=== PATIENT | female | born 1975 | race Two or more races ===

== ENCOUNTER 2020-09-10 08:47 | Outpatient (REF) | payer OTHER, SELFPAY ==
--- NOTE | 2020-09-10 08:52 | XR_ITS ---
EXAMINATION: XR CHEST CLINICAL INFORMATION: Shortness of breath COMPARISON: None TECHNIQUE: 2 views of the chest were obtained. FINDINGS: There are some regions of patchy density seen within the mid left lung and bilateral lung bases. No pneumothorax or pleural effusion. Heart normal size. No evidence of pulmonary edema. XR/XR chest 2V IMPRESSION: Patchy regions of disease seen bilaterally.
== END 2020-09-10 08:48 | disposition home or self-care (01) ==
LOC: HO.HMGCX 08:47
PROVIDERS: PCP Internal Medicine; Visit Provider Nurse Practitioner Family
DX: Z20.828 Contact with and (suspected) exposure to other viral communicable diseases (principal); R06.02 Shortness of breath
CPT/HCPCS: 71046; U0003

== ENCOUNTER → 2020-11-14 11:27 | Outpatient (BNVA) | payer OTHER, SELFPAY | PROVIDERS: PCP Internal Medicine; Visit Provider Physician Assistant Medical | DX: S29.012A Strain of muscle and tendon of back wall of thorax, initial encounter (principal); S33.9XXA Sprain of unspecified parts of lumbar spine and pelvis, initial encounter; S80.01XA Contusion of right knee, initial encounter; S60.211A Contusion of right wrist, initial encounter; W00.0XXA Fall on same level due to ice and snow, initial encounter | CPT/HCPCS: 73110; 73130; 99203 ==

== ENCOUNTER → 2020-11-18 13:34 | Outpatient (BNVA) | payer OTHER, SELFPAY | PROVIDERS: PCP Internal Medicine; Visit Provider Physician Assistant | DX: S29.012A Strain of muscle and tendon of back wall of thorax, initial encounter (principal); S39.012A Strain of muscle, fascia and tendon of lower back, initial encounter; S80.01XA Contusion of right knee, initial encounter; S60.211A Contusion of right wrist, initial encounter; W18.30XA Fall on same level, unspecified, initial encounter | CPT/HCPCS: 99213 ==

== ENCOUNTER → 2020-11-25 12:47 | Outpatient (BNVA) | payer OTHER, SELFPAY | PROVIDERS: PCP Internal Medicine; Visit Provider Internal Medicine | DX: S29.012A Strain of muscle and tendon of back wall of thorax, initial encounter (principal); S39.012A Strain of muscle, fascia and tendon of lower back, initial encounter; S80.01XA Contusion of right knee, initial encounter; S60.211A Contusion of right wrist, initial encounter; W18.30XA Fall on same level, unspecified, initial encounter | CPT/HCPCS: 99213 ==

== ENCOUNTER → 2020-12-02 13:02 | Outpatient (BNVA) | payer OTHER, SELFPAY | PROVIDERS: PCP Internal Medicine; Visit Provider Internal Medicine | DX: S29.012A Strain of muscle and tendon of back wall of thorax, initial encounter (principal); W18.30XA Fall on same level, unspecified, initial encounter | CPT/HCPCS: 72072; 99214 ==

== ENCOUNTER → 2020-12-15 13:04 | Outpatient (BNVA) | payer OTHER, SELFPAY | PROVIDERS: PCP Internal Medicine; Visit Provider Internal Medicine | DX: S29.012D Strain of muscle and tendon of back wall of thorax, subsequent encounter (principal); W18.30XD Fall on same level, unspecified, subsequent encounter | CPT/HCPCS: 99213 ==

== ENCOUNTER → 2020-12-29 12:53 | Outpatient (BNVA) | payer OTHER, SELFPAY | PROVIDERS: PCP Internal Medicine; Visit Provider Internal Medicine | DX: M54.6 Pain in thoracic spine (principal); Z91.81 History of falling | CPT/HCPCS: 99213 ==

== ENCOUNTER 2021-01-05 17:00 | Outpatient (RCR) | payer OTHER, SELFPAY ==
--- NOTE | 2020-11-26 13:06 | MHC.PT.EP ---
[facility] [place] Office [place] Office [place] Office [address] Bramb[address] [phone] F: [phone] F: [phone] F: [phone] F: [phone] Physical Therapy Plan of Care Date of Evaluation: 11/26/20 Date of Surgery: Diagnosis: fall at work, pain in back, shoulder Assessment: The patient has painful ROM in her midthoracic, cervical spine, and right shoulder region. Her wrist and her knee are back to WNL. She has fairly normal joint motion passively, but she has pain limitation with AROM. All special tests were normal for the shoulder. I did not do a Danielle assessment with her due to pt needing basic foundational posture improvement right now. Frequency and Duration: The patient will be seen 2x/week x 4 weeks Short Term Goals: 1. pt to be able to improve postural muscle endurance to tolerate upright sitting posture Custodial Goals: 1. Pt to be able to return to pain free daily activity. 2. 4 weeks ? The patient to be able to return to all functional reaching, self care ADL's without any limitation from pain or loss of ROM. Treatment Plan: Modalities to reduce pain, spasms and effusion. Manual therapy to restore motion and function. Therapeutic exercise to improve strength and flexibility. Neuromuscular re-education for posture and balance. Therapeutic activities to return to functional activities of daily living. Electronically signed by: Lacey Beckett PT DPT Please sign and return to therapist. Thank you for your referral.
--- NOTE | 2020-12-30 16:56 | MHC.PT.OD ---
[facility] [place] Office [place] Office [place] Office [address] Katlin Brambila [address] [phone] F: [phone] F: [phone] F: [phone] F: [phone] Physical Therapy Daily Note Diagnosis: fall at work, pain in back, shoulder Date of Surgery: Date of Evaluation: 11/26/20 Date of Treatment: 12/23/20 Treatments to Date: 6 Cancellations to Date: No Shows to Date: Authorized Visits: Insurance End Date: Precautions/ Contraindications: Subjective: pt reported she initially was sore after last treatment session but noticed an improvement of pain once the soreness ipmroved. Pain Score and Location: 4-5 UT/MT B Objective Flowsheet: Tests & Measures please see eval Exercises STEPPER X 10 Min Rocking 3 x 30' Open books 1# 3 x 10 B 4 ped shld flex 3 x 10 4 ped fire hydrants 3 x 10 4 ped hip ext 2 x 10 RTB ROW/EXT/Horizontal abd 3 x 10 ea RTB Bicep curl 3 x 10 RTB Tricep ext 3 x 10 Postural education: use of lumbar roll, decreasing forward head, avoidance of agg factors, chair preferences, posture with leisure activities, sleeping posture Modalities MHP to B UT regions seated w/ lumbar roll for spine support x 10 min w/ concomitant stretching Assessment: The patient overall has been reporting pain of lower frequency and intensity. She has met her short term goals at this time and has started tolerating a comprehensive upper body and lower body exercise program. At this time she demonstrates functional AROM but is still limited by pain regarding ADLs. pt would continue to be a good candidate for skilled physical therapy for an additional 2x/wk for 3 wks to continue to work on a comprehensive strengthening and functional training program to promote pain-free return to ADLs. PT Plan: postural education, gentle ROM, gentle stretching Short Term Goals: 1. pt to be able to improve postural muscle endurance to tolerate upright sitting posture - GOAL MET Top Lift Cutter Goals: 1. Pt to be able to return to pain free daily activity. - IN PROGRESS 2. 4 weeks ? The patient to be able to return to all functional reaching, self care ADL's without any limitation from pain or loss of ROM. - IN PROGRESS Electronically signed by: Jayson Jeffries OIL INSPECTOR
--- NOTE | 2021-01-22 14:10 | MHC.PT.DC ---
[facility] [place] Office [place] Office [place] Office [address] 140 [facility] [phone] F: [phone] F: [phone] F: [phone] F: [phone] Physical Therapy Discharge Report Diagnosis: fall at work, pain in back, shoulder Date of Surgery: Date of Evaluation: 11/26/20 Date of Discharge: 01/22/21 Treatments to Date: 8 Cancellations to Date: 2 No Shows to Date: 0 Discharge Status: Improved Function Independent with HEP Discharge Summary: The patient was reporting generalized muscle soreness but significant reduction in pain with physical therapy. She is independent with her home exercise program at this time. She is discharged from this physical therapy plan of care. Electronically signed by: Marlyn Johnson PT, DPT Please sign and return to therapist. Thank you for your referral.
== END 2021-01-22 14:11 | disposition other institution (70) ==
LOC: HO.PT 17:00
PROVIDERS: PCP Internal Medicine; Visit Provider Internal Medicine
DX: S39.012A Strain of muscle, fascia and tendon of lower back, initial encounter (principal)
CPT/HCPCS: 97110; 97112; 97161; 97530

== ENCOUNTER → 2021-01-08 13:00 | Outpatient (BNVA) | payer OTHER, SELFPAY | PROVIDERS: PCP Internal Medicine; Visit Provider Internal Medicine | DX: S29.012D Strain of muscle and tendon of back wall of thorax, subsequent encounter (principal); X58.XXXD Exposure to other specified factors, subsequent encounter | CPT/HCPCS: 99213 ==

== ENCOUNTER 2021-02-13 07:32 | Outpatient (REF) | payer OTHER, SELFPAY ==
[2021-02-13 12:01] LABS: Alanine Aminotransferase 16 U/L (0-31); Albumin Level 4.3 g/dL (3.5-5.0); Alkaline Phosphatase 40 U/L (39-117); Anion Gap 14 (12-20); Aspartate Amino Transferase 15 U/L (5-31); Bilirubin Total 0.5 mg/dL (0.0-1.0); Blood Urea Nitrogen 8 mg/dL (9-16); Calcium 8.7 mg/dL (8.4-10.2); Carbon Dioxide 24 mmol/L (22-29); Chloride 105 mmol/L (96-108); Cholesterol 218 mg/dL; Estimated Glomerular Filt Rate > 60; Glucose Fasting 88 mg/dL (60-99); HDL Cholesterol 63 mg/dL; LDL Cholesterol Calculated 136 mg/dl; Potassium 4.1 mmol/L (3.3-5.1); Sodium 139 mmol/L (135-145); Total Protein 6.7 g/dL (6.5-8.0); Triglycerides 98 mg/dL
[2021-02-13 12:02] LABS: Hematocrit 37.5 % (37-47); Hemoglobin 12.4 g/dl (12.0-16.0); Mean Corpuscular HGB Conc 33.1 g/dl (31.0-35.0); Mean Corpuscular Hemoglobin 32.2 pg (27.0-33.0); Mean Corpuscular Volume 97.4 fL (80-98); Mean Platelet Volume 9.1 fL (9.4-12.3); Platelet Count 300 X10*3/uL (160-400); Red Blood Count 3.85 X10*6/uL (4.20-5.50); Red Cell Distribution Width 14.2 % (11.0-16.0)
[2021-02-13 12:29] LABS: TSH reflex Free T4 0.83 uIU/mL (0.32-4.0)
== END 2021-02-13 07:33 | disposition home or self-care (01) ==
LOC: HO.HMGCLDS 07:32
PROVIDERS: PCP Internal Medicine; Visit Provider Internal Medicine
DX: Z00.00 Encounter for general adult medical examination without abnormal findings (principal); J45.901 Unspecified asthma with (acute) exacerbation
CPT/HCPCS: 36415; 80053; 80061; 84443; 85027

== ENCOUNTER 2023-06-24 10:35 | Outpatient (AMB) | payer OTHER, SELFPAY ==
--- NOTE | 2023-06-24 10:48 | MHC.PC.OV ---
Vital Signs 06/24/23 10:49 Height 5 ft 2 in Weight 193 lb BMI 35.3 BP 128/82 Blood Pressure Location Lt brachial Position Sitting Pulse 65 Pulse Source Pulse Oximeter Pulse Oximetry (%) 98 Oxygen Delivery Method Room Air Intake Visit Reasons: Annual Exam Intake Note: Pt is here today for PE. Allergies metronidazole [Flagyl] Allergy (Unknown, Verified 06/24/23 10:56) Hives carisoprodol [Soma] Adverse Reaction (Severe, Verified 06/24/23 10:56) Swelling of the face SOB Medication List - Last Reconciled 06/24/23 by Mary Ann Vick MD albuterol sulfate 90 mcg/actuation (Ventolin HFA) 2 puffs inhalation Q6H PRN azithromycin take 500 mg today (day 1), then 250 mg for 4 days (days 2-5) PO budesonide-formoterol 80-4.5 mcg/actuation (Symbicort) 2 puffs inhalation BID cyclobenzaprine mg PO flu vacc [id number] 6mos up(PF) mL IM loratadine (Claritin) 10 mg PO DAILY naproxen 500 mg PO BID prednisone 60 mg (3 x 20 mg) PO DAILY trazodone 50 mg PO BEDTIME Tobacco use date assessed: 06/24/23 Dental Screening Dental Screen Date: 06/24/23 Did you have a dental visit in the last 12 months?: Yes Did you have a dental problem in the last 6 months where you did not have access to dental care?: No Was dental information given to patient?: Patient has dentist HPI Annual Exam HPI Details Pt presents for PE. [facility] Medical History (Updated 06/24/23 @ 11:39 by Mary Ann Vick MD) Annual physical exam Back pain Surgical History (Updated 10/07/20 @ 08:26 by DEEPAK Rosario, PSYCHIATRIC AIDES TEACHER) No pertinent past surgical history Family History Father No problems noted. Mother HTN (hypertension) High cholesterol Myocardial infarction Mental health disorder Brother Mental health disorder Social History Housing: House Alcohol intake: current Alcohol intake frequency: a few times a month Patient Tobacco Use Status: Never used Tobacco Current occupational status: employed Cognitive needs: No Hearing needs: No Vision needs: Yes Questionnaire AUDIT C Alcohol Use Questionnaire (AUDIT-C) 1. How often do you have a drink containing alcohol?: 2-4 times a month 2. How many drinks containing alcohol do you have on a typical day when you are drinking?: 1 or 2 3. How often do you have six or more drinks on one occasion?: Never Total Score: 2 Review of Systems Const All systems reviewed & are unremarkable except as noted in HPI and below Reports no additional complaints Eyes Reports no additional complaints ENT Reports no additional complaints Card Reports no additional complaints Resp Reports no additional complaints GI Reports no additional complaints Reports no additional complaints Physical exam (Primary Care) Vital Signs: Last Vital Signs Pulse 65 06/24/23 10:49 BP 128/82 06/24/23 10:49 Pulse Ox 98 06/24/23 10:49 Oxygen Delivery Method Room Air 06/24/23 10:49 BMI result Body Mass Index 35.3 Tobacco/Smoking Status: Tobacco use Status Tobacco use date assessed 06/24/23 06/24/23 10:59 Patient Tobacco Use Status Never used Tobacco 06/24/23 10:59 Const General: no acute distress HENMT Head: Yes normal to inspection Ears: hearing grossly normal bilaterally Face and sinus: Yes normal facial exam Throat: Yes posterior oropharynx normal Eyes General: appearance normal, both eyes and all related structures Neck Neck: Yes no lymphadenopathy and Yes supple Resp Effort & Inspection: normal respiratory effort Auscultation: clear to auscultation bilaterally Cardio Rhythm: regular rhythm Heart sounds: S1 normal heart sound present and S2 normal heart sound present GI Inspection: Yes normal to inspection Palpation (GI): Soft to palpation Percussion: Yes normal to percussion Auscultation: normal bowel sounds Assessment and Plan Assessment & Plan (1) Annual physical exam: Code(s): Z00.00 - Encounter for general adult medical examination without abnormal findings Plan: Well-balanced diet and regular physical activity discussed with the patient. She will return for fasting blood work. Patient will be referred to GI for colonoscopy and mammogram will be scheduled. She follows up with autocad detailer for Pap smear (2) Asthma: Code(s): J45.909 - Unspecified asthma, uncomplicated Qualifiers: Asthma severity: mild Asthma persistence: unspecified Asthma complication type: with acute exacerbation Qualified Code(s): J45.901 - Unspecified asthma with (acute) exacerbation Plan: Patient will restart Symbicort and use albuterol as needed. Z-Myron is prescribed for acute sinusitis (3) Normal pelvic exam: Comment: autocad detailer Code(s): Z01.419 - Encounter for gynecological examination (general) (routine) without abnormal findings Orders: Orders Comprehensive [place]. Panel Fast Today J45.909 - Unspecified asthma, uncomplicated, Z00.00 - Encounter for general adult medical examination without abnormal findings Complete Blood Count Auto Diff Today J45.909 - Unspecified asthma, uncomplicated, Z00.00 - Encounter for general adult medical examination without abnormal findings Lipid Panel Today J45.909 - Unspecified asthma, uncomplicated, Z00.00 - Encounter for general adult medical examination without abnormal findings TSH reflex Free T4 Today J45.909 - Unspecified asthma, uncomplicated, Z00.00 - Encounter for general adult medical examination without abnormal findings Referrals Gastroenterology Referral Z00.00 - Encounter for general adult medical examination without abnormal findings Medications: Refilled budesonide-formoterol 80-4.5 mcg/actuation (Symbicort) 2 puffs inhalation BID 10.2 grams 6RF albuterol sulfate 90 mcg/actuation (Ventolin HFA) Schedule PCP appt for more refills 2 puffs inhalation Q6H PRN 8.5 grams 5RF shortness of breath or wheezing loratadine (Claritin) 10 mg PO DAILY 90 tabs 3RF azithromycin take 500 mg today (day 1), then 250 mg for 4 days (days 2-5) PO 6 tabs 0RF Discontinued trazodone Discontinued Reason: Doctor's Order 50 mg PO BEDTIME 90 tabs 3RF prednisone Discontinued Reason: Doctor's Order 60 mg (3 x 20 mg) PO DAILY 9 tabs 0RF Coding Level of Care Code Est Pt Prev Care 40-64y(29869) Diagnoses Annual physical exam Z00.00 Mild asthma with acute exacerbation, unspecified whether persistent J45.901 Asthma severity: mild Asthma persistence: unspecified Asthma complication type: with acute exacerbation Normal pelvic exam Z01.419
[2023-06-24 10:49] VITALS: BP 128/82; PULSE 65; O2SAT 98; BMI 35.3
== END 2023-06-24 11:43 | disposition home or self-care (01) ==
PROVIDERS: Visit Provider Internal Medicine
DX: Z00.00 Encounter for general adult medical examination without abnormal findings (principal); J45.901 Unspecified asthma with (acute) exacerbation
CPT/HCPCS: 99396

== ENCOUNTER 2023-07-02 08:28 | Outpatient (REF) | payer OTHER, SELFPAY ==
[2023-07-02 11:34] LABS: MANUAL DIFF FLAG NO
[2023-07-02 11:40] LABS: Basophils Percent Auto 0.5 % (0-2); Eosinophils Absolute Auto 0.1 X10*3/uL (0.0-0.4); Eosinophils Percent Auto 1.4 % (0-4); Hematocrit 41.9 % (37.0-47.0); Hemoglobin 13.8 g/dl (12.0-16.0); Imm Gran Abs Auto 0.01 X10*3/uL (0.00-0.03); Imm Gran Pct Auto 0.2 % (0.0-0.4); Lymphocytes Percent Auto 46.9 % (20-40); Mean Corpuscular HGB Conc 32.9 g/dl (31.0-35.0); Mean Corpuscular Hemoglobin 31.5 pg (27.0-33.0); Mean Corpuscular Volume 95.7 fL (80.0-98.0); Mean Platelet Volume 9.5 fL (9.4-12.3); Monocytes Absolute Auto 0.4 X10*3/uL (0.1-1.2); Monocytes Percent Auto 8.2 % (2-11); Neutrophils Absolute Auto 1.8 x10*3/uL (2.0-8.3); Neutrophils Percent Auto 42.8 % (45-73); Platelet Count 319 X10*3/uL (160-400); Red Blood Count 4.38 X10*6/uL (4.20-5.50); Red Cell Distribution Width 13.4 % (11.0-16.0); White Blood Count 4.3 X10*3/uL (4.8-10.8)
[2023-07-02 12:02] LABS: Alanine Aminotransferase 19 U/L (0-31); Albumin Level 4.6 g/dL (3.5-5.0); Alkaline Phosphatase 41 U/L (39-117); Anion Gap 12 (12-20); Aspartate Amino Transferase 23 U/L (5-31); Bilirubin Total 0.5 mg/dL (0.0-1.0); Blood Urea Nitrogen 10 mg/dL (9-16); Calcium 9.5 mg/dL (8.4-10.2); Carbon Dioxide 24 mmol/L (22-29); Chloride 106 mmol/L (96-108); Cholesterol 208 mg/dL (<200); Estimated Glomerular Filt Rate > 60; Glucose Fasting 92 mg/dL (60-99); HDL Cholesterol 52 mg/dL (>40); LDL Cholesterol Calculated 126 mg/dL (<100); Sodium 138 mmol/L (135-145); Total Protein 7.3 g/dL (6.5-8.0); Triglycerides 150 mg/dL (<150)
[2023-07-02 12:16] LABS: TSH reflex Free T4 1.61 uIU/mL (0.32-4.0)
== END 2023-07-02 08:29 | disposition home or self-care (01) ==
LOC: HO.HMGCLDS 08:28
PROVIDERS: PCP Internal Medicine; Visit Provider Internal Medicine
DX: Z00.00 Encounter for general adult medical examination without abnormal findings (principal); J45.909 Unspecified asthma, uncomplicated
CPT/HCPCS: 36415; 80053; 80061; 84443; 85025

== ENCOUNTER 2023-09-28 15:15 | Outpatient (AMB) | payer OTHER, SELFPAY ==
[2023-09-28 15:19] VITALS: BP 143/64; PULSE 60; BMI 35.2
--- NOTE | 2023-09-28 15:19 | MHC.OFFVIS ---
Intake Vital Signs 09/28/23 15:19 09/28/23 15:30 Height 5 ft 2 in Weight 192 lb 10.944 oz BMI 35.2 BP 143/64 H 126/80 Blood Pressure Location Lt brachial Lt brachial Position Sitting Sitting Pulse 60 Comment Manual BP Intake Visit Reasons: Colonoscopy Screening Intake Note: Patient presents to in office visit today as a new patient for colonoscopy screening. CC: Patient reports acid reflux, she use to take medication for it for not any longer. She also reports occasional constipation and hemorrhoids. She states she has an inflamed hemorrhoid right now and is itchy and swollen. She has never had a colonoscopy done. 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 She is referred by Mary Ann Vick of [facility] primary [facility]. PMX Asthma * SURGICAL HISTORY Tonsillectomy C section x 2 Meniscus knee surgery * ALLERGIES Flagyl Soma * [employer] LABS: Laboratory Tests 07/02/23 08:34 WBC 4.3 L Hgb 13.8 Hct 41.9 Plt Count 319 Estimated GFR > 60 Total Bilirubin 0.5 AST 23 ALT 19 Alkaline Phosphata se 41 TSH 1.61 TODAY'S VISIT This is her first colonoscopy. There are no prior problems with anesthesia or sedation. Her asthma is well controlled no cardiac problems. No ID problems. There is no known FHX of CRC or polyps. [facility] Medical History (Updated 09/28/23 @ 15:31 by ADRY Cervantes) Annual physical exam Back pain Surgical History (Updated 09/28/23 @ 15:50 by ADRY Cervantes) H/O knee surgery History of section History of appendectomy No pertinent past surgical history Family History Father No problems noted. Mother HTN (hypertension) High cholesterol Myocardial infarction Mental health disorder Brother Mental health disorder Maternal Grandmother Leukemia Social History Housing: House Alcohol intake: current Alcohol intake frequency: a few times a month Patient Tobacco Use Status: Never used Tobacco Current occupational status: employed Cognitive needs: No Hearing needs: No Vision needs: Yes Review of Systems Const Denies fatigue, Denies fever(s), Denies night sweats, Denies poor appetite and Denies weight loss Eyes Details: glasses Reports requires corrective lenses ENT Reports Normal hearing present, Denies dental pain, Denies dysphagia, Denies hearing loss, Denies mouth pain, Denies odynophagia, Denies throat swelling, Denies tongue swelling and Reports other (Dentition adequate) Card Reports no additional complaints Resp Reports no additional complaints GI Denies abdominal pain, Denies melena, Denies bloating, Denies hematochezia, Denies constipation, Denies GI cramping, Denies dysphagia, Denies excessive flatus, Denies early satiety, Denies heartburn, Denies diarrhea, Denies nausea, Denies odynophagia, Denies vomiting and Denies hematemesis Skin/Breast Denies pruritus, Denies lesions, Denies rash and Denies jaundice Neuro Reports Normal hearing present and Denies Abnormal speech present Endo Denies fatigue Aller/Immun Denies throat swelling and Denies tongue swelling Physical Exam Vital Signs: Last Vital Signs Pulse 60 09/28/23 15:19 BP 126/80 09/28/23 15:30 BMI result Body Mass Index 35.2 Const General: cooperative, no acute distress, well developed and well groomed Nutritional Appearance: well nourished and obese Orientation/consciousness: oriented to person, oriented to place and oriented to time Limitations: No language barrier HEENT Head: Yes normocephalic and Yes atraumatic Eyes General: appearance normal, both eyes and all related structures Pupils: Equal, round and reactive pupils present Neck Neck: Yes normal visual inspection and Yes no lymphadenopathy Thyroid: Thyroid normal Resp Effort & Inspection: normal respiratory effort and able to speak in complete sentences Auscultation: clear to auscultation bilaterally Cardio Rate: regular rate Rhythm: regular rhythm Heart sounds: Normal, physiologic split S2 sound present Peripheral pulses: radial pulses present and posterior tibial pulses present GI Inspection: No distended, Yes Abdominal panniculus present and Yes obesity Palpation (GI): Soft to palpation, nontender, no guarding, not rigid and No hepatosplenomegaly present Percussion: Yes normal to percussion Auscultation: normal bowel sounds Rectal Exam - Female: deferred Abdomen image: 1. surgical scars Skin General skin exam: no rashes or lesions noted, turgor normal, skin not dry, no jaundice, No spider nevi and no striae Rashes: no rashes Nails: normal Neuro General: oriented to person, oriented to place and oriented to time Cranial nerves: Yes Equal, round and reactive pupils present and Yes Normal hearing present Speech: No Abnormal speech present Extrem General: Yes normal to inspection, No clubbing, No cyanosis and No edema Psych Appearance: grossly normal and well kempt Mental Status: mental status grossly normal Speech and movement: Normal speech and movement present Affect: normal affect Attitude: cooperative Thought process: Normal thought process present and not confabulating Thought content: Normal thought content present Insight: Good insight present (Psych) Judgement: Good judgement present (Psych) Assessment & Plan Assessment & Plan (1) Pre-op examination: Code(s): Z01.818 - Encounter for other preprocedural examination Plan This is her first colonoscopy. There are no prior problems with anesthesia or sedation. Her asthma is well controlled no cardiac problems. No ID problems. There is no known FHX of CRC or polyps. Orders: Orders Colonoscopy - GI Use Only Today Z01.818 - Encounter for other preprocedural examination Medications: New sod picosulf-mag ox-citric ac 10 mg-3.5 gram- 12 gram/160 mL (Clenpiq) take first dose at 5-9PM evening before colonoscopy; 2nd dose the next day approximately 5 hrs before colonoscopy 160 mL PO DAILY 320 mL 0RF Z01.818 - Encounter for other preprocedural examination Coding Level of Care Code New Pt Level 3 (56727) Diagnoses Pre-op examination Z01.818
[2023-09-28 15:30] VITALS: BP 126/80
== END 2023-09-28 16:06 | disposition home or self-care (01) ==
PROVIDERS: PCP Internal Medicine; Visit Provider Nurse Practitioner
DX: Z01.818 Encounter for other preprocedural examination (principal)
CPT/HCPCS: 99203

== ENCOUNTER → 2023-09-28 15:15 | Outpatient (BNVA) | payer OTHER, SELFPAY | PROVIDERS: PCP Internal Medicine; Visit Provider Nurse Practitioner ==

== ENCOUNTER 2024-01-31 08:55 | Day surgery (SDC) | payer OTHER, SELFPAY ==
--- NOTE | 2024-01-30 13:59 | HO.ANESPROP2 ---
Documented by User: Carole Uribe NP 01/30/24 13:59 HPI - Anesthesia Eval Consult details Narrative: 48yo F for Colonoscopy PMFSH Active Problems Active Problems: All Active Problems Pre-op examination (Acute) Normal pelvic exam (Acute) Annual physical exam (Acute) Back pain (Acute) Fall (Acute) Cough (Acute) Otitis media (Acute) Sinusitis (Acute) Shortness of breath (Acute) Asthma (Acute) Past Medical History Medical History Annual physical exam Back pain Family History Family History Father No problems noted. Mother HTN (hypertension) High cholesterol Myocardial infarction Mental health disorder Brother Mental health disorder Maternal Grandmother Leukemia Surgical History Surgical History H/O knee surgery History of section History of appendectomy No pertinent past surgical history Social History Social History Housing: House Alcohol intake: current Alcohol intake frequency: holidays/special occasions only Patient Tobacco Use Status: Never used Tobacco Substance Use Type Other:: smoked at night for sleep Are you DNR?: No Advance Directives: No Advance Directives Information Provided: Yes Recently lost weight without trying: No Nutrition Risks: No Nutritional Risk Patient : No Current occupational status: employed Cognitive needs: No Hearing needs: No Vision needs: Yes Meds Allergies Allergy/AdvReac Type Severity Reaction Status Date / Time metronidazole [Flagyl] Allergy Unknown Hives Verified 09/28/23 15:22 carisoprodol [Soma] AdvReac Severe Swelling Verified 09/28/23 15:22 of the face SOB Assessment and Plan Assessment Anesthesia Assessment: Chart Reviewed Documented by User: Cristel Cervantes MD 01/31/24 09:28 PMFSH Past Medical History Medical History Annual physical exam Back pain Family History Family History Father No problems noted. Mother HTN (hypertension) High cholesterol Myocardial infarction Mental health disorder Brother Mental health disorder Maternal Grandmother Leukemia Surgical History Surgical History H/O knee surgery History of section History of appendectomy No pertinent past surgical history History of Problems with Anesthesia: No Social History Social History Housing: House Alcohol intake: current Alcohol intake frequency: holidays/special occasions only Patient Tobacco Use Status: Never used Tobacco Substance Use Type Other:: smoked at night for sleep Are you DNR?: No Advance Directives: No Advance Directives Information Provided: Yes Recently lost weight without trying: No Nutrition Risks: No Nutritional Risk Patient : No Current occupational status: employed Cognitive needs: No Hearing needs: No Vision needs: Yes Meds Allergies Allergy/AdvReac Type Severity Reaction Status Date / Time metronidazole [Flagyl] Allergy Unknown Hives Verified 09/28/23 15:22 carisoprodol [Soma] AdvReac Severe Swelling Verified 09/28/23 15:22 of the face SOB Exam Airway Mallampati Class: II TM Dist: >3cm Neck ROM: Full Loose/Missing/Broken Teeth: No Heart: RRR Lungs: CTA Assessment and Plan Assessment Anesthesia Assessment: Anesthesia Plan Discussed Final Anesthetic Review History of Problems with Anesthesia: No NPO: Yes ASA Class: II Final Preanesthetic Review: Meds/Allgs Chart Reviewed, Consent Obtained/Reviewed and Anes Risks/Benef Reviewed Patient Risk: Low Procedure Risk: Low Anesthetic Plan Anesthetic Plan: MAC: Disposition: Standard PACU
[2024-01-31 09:08] VITALS: BP 163/94; PULSE 65; RESP 20; TEMP 36.8; O2SAT 99; BMI 33.0
--- NOTE | 2024-01-31 09:24 | MHC.SHP ---
Pre-Procedural Eval Section A - 24 Hr Update-Section A only Date of Service: 01/31/24 Section B - Complete if H&P > 30 days Chief Complaint: screening Relevant Family History (Specify if Yes): No Relevant Social History: None Present Medications: see Short Stay Collaborative assessment Medical History: Significant History (back pain) History of Previous Operations: Relevant previous surgery/procedure and date(s) (H/O knee surgery History of section History of appendectomy) Allergies: Allergies Allergy/AdvReac Type Severity Reaction Status Date / Time metronidazole [Flagyl] Allergy Unknown Hives Verified 09/28/23 15:22 carisoprodol [Soma] AdvReac Severe Swelling Verified 09/28/23 15:22 of the face SOB Review of Systems Sugical H&P ROS: Negative: Constitution, Cardiovascular, Respiratory, Neurological, Psychiatric, Hem-Onc, Allergic/Immunologic, Gastrointestinal, Genitourinary, Musculoskeletal, Integumentary, Endocrine and Eyes/Ears/Nose/Throat Exam Surgical H&P Exam: Normal: HEENT, Normal: Heart, Normal: Lungs, Normal: Extremities, Normal: Abdomen, Normal: Skin and Normal: Neurological Plan Diagnosis/Plan: Unchanged I have reviewed the history and physical and performed a pertinent physical examination on my patient. No changes have occurred unless specified. Time Spent With Patient Time: Total time managing care of this patient today ____ minutes.
[2024-01-31 09:32] LABS: UPreg QC Valid YES; Urine Pregnancy NEGATIVE (NEGATIVE)
[2024-01-31] MEDS: Lactated Ringers 1,000 ML 100 ML IVCONT (09:33)
--- NOTE | 2024-01-31 11:03 | P.OP_ITS ---
Operative Note Operative Note Date of Service: 01/31/24 Narrative: Operative Information Procedure Description: Colonoscopy Indication: screening Anesthesia: MAC COLONOSCOPY Instrument: Olympus variable stiffness pediatric scope 190L Colonoscopy Monitoring: Vital signs and clinical assessment, continuous EKG monitoring, Pulse oximetry, Carbon Dioxide monitoring and blood pressure monitoring were done throughout the procedure. Colon withdrawal time was 10 minutes. Procedure: The patient was placed in the left lateral decubitis position and pre-procedure medications were administered. After a digital rectal examination of the ano-rectum, the video colonoscope was inserted into the rectum and advanced through the colon to the cecum/TI. The colonoscope was slowly withdrawn in a retrograde panoramic fashion and the colon mucosa was carefully examined including a retroflexed view of the rectum. Findings and interventions are described below. Procedure Difficulty: moderate Findings: Terminal Ileum-normal Cecum:normal Ascending Colon: normal Transverse Colon -normal Descending Colon:normal Sigmoid Colon: normal Rectum: Retroflexion with small internal hemorrhoids seen, grade I, x 2 sessile polyps 8-9 mm removed with cold snare and x 1 sessile polyp 4-5 mm removed with cold forceps Anorectum - normal Intervention: cold snare and biopsy forceps Colon preparation: [place] Bowel Preparation Scale Right colon; 2 Transverse colon: 2 Left colon; 2 (0 = Unprepared colon segment with mucosa not seen due to solid stool that cannot be cleared. 1 = Portion of mucosa of the colon segment seen, but other areas of the colon segment not well seen due to staining, residual stool and/or opaque liquid. 2 = Minor amount of residual staining, small fragments of stool and/or opaque liquid, but mucosa of colon segment seen well. 3 = Entire mucosa of colon segment seen well with no residual staining, small fragments of stool or opaque liquid) Impression and Post Procedure Diagnosis: colon polyps internal hemorrhoids Plan: High fiber diet leaflet Avoid straining at stool, epsom salts and sitz bath, anusol supps or cream Repeat Colonoscopy in 5 years if adenomatous polyps, 10 yrs if non adenomatous or earlier if clinically indicated Above findings were reviewed with the patient and relevant handouts were provided if indicated.
[2024-01-31 11:09] VITALS: BP 124/60; PULSE 57; RESP 18; TEMP 37.1; O2SAT 100
[2024-01-31 11:24] VITALS: BP 140/70; PULSE 45; RESP 18; O2SAT 98
[2024-01-31 11:39] VITALS: BP 136/60; PULSE 52; RESP 18; TEMP 36.6; O2SAT 98
== END 2024-01-31 12:27 | disposition home or self-care (01) ==
PROVIDERS: Nurse Practitioner; PCP Internal Medicine; Visit Provider Internal Medicine Gastroenterology
PROC: 0DJD8ZZ Inspection of Lower Intestinal Tract, Via Natural or Artificial Opening Endoscopic (ICD-10-PCS; CPT 45378; principal; 2024-01-31 12:00)
DX: Z12.11 Encounter for screening for malignant neoplasm of colon (principal); K62.1 Rectal polyp; K64.0 First degree hemorrhoids; J45.909 Unspecified asthma, uncomplicated; Z79.899 Other long term (current) drug therapy; Z88.8 Allergy status to other drugs, medicaments and biological substances
CPT/HCPCS: 45385; 45380; 81025; 88305; J2704

== ENCOUNTER → 2024-01-31 08:55 | Outpatient (BNV) | payer OTHER, SELFPAY | PROVIDERS: PCP Internal Medicine; Visit Provider Internal Medicine Gastroenterology | DX: Z12.11 Encounter for screening for malignant neoplasm of colon (principal); K63.5 Polyp of colon; K64.0 First degree hemorrhoids | CPT/HCPCS: 45380; 45385 ==

== ENCOUNTER 2024-06-27 10:31 | Outpatient (AMB) | payer OTHER, SELFPAY ==
[2024-06-27 10:34] VITALS: BP 122/76; PULSE 56; O2SAT 98; BMI 35.0
--- NOTE | 2024-06-27 10:34 | A.OFFPC_ITS ---
Vital Signs 06/27/24 10:34 Height 5 ft 4 in Weight 204 lb BMI 35.0 BP 122/76 Blood Pressure Location Lt brachial Position Sitting Pulse 56 Pulse Source Pulse Oximeter Pulse Oximetry (%) 98 Oxygen Delivery Method Room Air Intake Visit Reasons: PE Intake Note: Pt is here today for PE. Pt had pap in January of this year. Pt had mammo done at [place] last month. Allergies metronidazole [Flagyl] Allergy (Unknown, Verified 06/27/24 10:49) Hives carisoprodol [Soma] Adverse Reaction (Severe, Verified 06/27/24 10:49) Swelling of the face SOB Medication List - Last Reconciled 06/27/24 by Mary Ann Vick MD albuterol sulfate 90 mcg/actuation (Ventolin HFA) 2 puffs inhalation Q6H PRN Tobacco use date assessed: 06/27/24 Dental Screening Dental Screen Date: 06/27/24 Did you have a dental visit in the last 12 months?: Yes Did you have a dental problem in the last 6 months where you did not have access to dental care?: No Was dental information given to patient?: Patient has dentist HPI PE HPI Details Patient presents for a physical. Chronic asthma is controlled on Symbicort use only in the fall and winter. Patient reports chronic intermittent epigastric and right upper quadrant abdominal discomfort after eating fried foods. She reports intermittent heartburn but no odynophagia dysphagia nausea vomiting fever chills change in bowel habits. COUNT INCLUDES THE [facility] Medical History (Updated 06/27/24 @ 11:18 by Mary Ann Vick MD) Annual physical exam Back pain Surgical History (Updated 06/27/24 @ 13:12 by Mary Ann Vick MD) H/O knee surgery History of section History of appendectomy No pertinent past surgical history Family History Father No problems noted. Mother HTN (hypertension) High cholesterol Myocardial infarction Mental health disorder Brother Mental health disorder Maternal Grandmother Leukemia Social History Housing: House Alcohol intake: current Alcohol intake frequency: holidays/special occasions only Patient Tobacco Use Status: Never used Tobacco e-Cigarette/Vaping Use: Never Used service: No Current occupational status: employed Cognitive needs: No Hearing needs: No Vision needs: Yes Questionnaire PHQ-9 Over the last 2 weeks, how often have you been bothered by any of the following problems? 1. Little interest or pleasure in doing things: not at all 2. Feeling down, depressed, or hopeless: not at all 3. Trouble falling or staying asleep, or sleeping too much: not at all 4. Feeling tired or having little energy: several days 5. Poor appetite or overeating: not at all 6. Feeling bad about yourself - or that you are a failure or have let yourself or your family down: not at all 7. Trouble concentrating on things, such as reading the newspaper or watching television: not at all 8. Moving or speaking so slowly that other people could have noticed. Or the opposite - being so fidgety or restless that you have been moving around a lot more than usual: not at all 9. Thoughts that you would be better off or of hurting yourself in some way: not at all Total score: 1 Depression Screening Interpretation: Negative Depression Screening Done: Yes 20599 - PHQ-9 Billing: Yes Source: Developed by Drs. Kelby Cervantes, Saritha Crawford, Royal Barahona and colleagues, with an educational usman from [employer]. Thrive Questionnaire Date Thrive assessed: 06/27/24 I am a: Patient What is your living situation today?: I have a steady place to live Within the past 12 months, did the food you bought not last and you didn't have the money to get more?: Never true Within the past 12 months, did you worry whether your food would run out before you got money to buy more?: Never true Do you have trouble paying for medicines?: No Do you have trouble getting transportation to medical appointments?: No Do you have trouble paying your heating and electricity bill?: No Do you have trouble taking care of your child, family member or friend?: No Do you have trouble with day-to-day activities such as bathing, preparing meals, shopping, managing finances, etc.?: No Are you interested in more education?: No Please select the resources that you would like help with: None Currently or been in a relationship where the following occur: No concerns reported THRIVE Score: 0 AUDIT C Alcohol Use Questionnaire (AUDIT-C) 1. How often do you have a drink containing alcohol?: 2-4 times a month 2. How many drinks containing alcohol do you have on a typical day when you are drinking?: 3 or 4 3. How often do you have six or more drinks on one occasion?: Never Total Score: 3 SATNAM-7 AMB Questionnaire SATNAM-7 Date SATNAM - 7 assessed: 06/27/24 Feeling nervous, anxious, or on edge: 1 = Several days Not being able to stop or control worryin = Not at all Worrying too much about different things: 0 = Not at all Trouble relaxin = Not at all Being so restless that it is hard to sit still: 0 = Not at all Becoming easily annoyed or irritable: 1 = Several days Feeling afraid as if something awful might happen: 0 = Not at all Total SATNAM-7 score (0-4 normal; 5-9 mild; 10-14 moderate; 15-21 severe): 2 Source: Developed by Drs. Kelby Cervantes, Saritha Crawford, Royal Barahona and colleagues, with an educational usman from [employer]. SATNAM-7 Assessment Billing SATNAM-7 Assessment Tool: SATNAM-7 Assessment 52845 Review of Systems Const All systems reviewed & are unremarkable except as noted in HPI and below Eyes Reports no additional complaints ENT Reports no additional complaints Card Reports no additional complaints Resp Reports no additional complaints GI Reports no additional complaints Reports no additional complaints Physical exam (Primary Care) Vital Signs: Last Vital Signs Pulse 56 06/27/24 10:34 BP 122/76 06/27/24 10:34 Pulse Ox 98 06/27/24 10:34 Oxygen Delivery Method Room Air 06/27/24 10:34 BMI result Body Mass Index 35.0 Tobacco/Smoking Status: Tobacco use Status Tobacco use date assessed 06/27/24 06/27/24 10:50 Patient Tobacco Use Status Never used Tobacco 06/27/24 10:50 e-Cigarette/Vaping Use Never Used 06/27/24 10:50 PHQ-9: PHQ-9 Score PHQ-9: Total score 1 06/27/24 10:55 Depression Screening Interpretation: Negative Thrive Assessment: Date of Thrive Assessment Date Thrive assessed 06/27/24 06/27/24 10:55 Currently or been in a relationship where the following occur: No concerns reported Const General: no acute distress HENMT Head: Yes normal to inspection Ears: hearing grossly normal bilaterally Face and sinus: Yes normal facial exam Mouth: Normal oral and palatal mucosa present Eyes General: appearance normal, both eyes and all related structures Neck Neck: Yes no lymphadenopathy and Yes supple Resp Effort & Inspection: normal respiratory effort Auscultation: clear to auscultation bilaterally Cardio Rhythm: regular rhythm Heart sounds: S1 normal heart sound present and S2 normal heart sound present GI Inspection: Yes normal to inspection Palpation (GI): Soft to palpation Percussion: Yes normal to percussion Auscultation: normal bowel sounds Assessment and Plan Assessment & Plan (1) Annual physical exam: Code(s): Z00.00 - Encounter for general adult medical examination without abnormal findings Plan: Well-balanced diet regular physical activity weight loss discussed with the patient. She is up-to-date with the mammogram Pap smear and colonoscopy (2) Asthma: Code(s): J45.909 - Unspecified asthma, uncomplicated Qualifiers: Asthma complication type: with acute exacerbation Asthma persistence: unspecified Asthma severity: mild Qualified Code(s): J45.901 - Unspecified asthma with (acute) exacerbation Plan: Continue Symbicort and albuterol as needed (3) RUQ abdominal pain: Code(s): R10.11 - Right upper quadrant pain Plan: For chronic intermittent right upper quadrant epigastric discomfort after eating abdominal ultrasound will be obtained to rule out gallstones and patient will try omeprazole 40 mg for 1 month if the symptoms persist she will be referred to GI (4) Hx of colonoscopy: Comment: 01/2024 2 hyperplastic polyp recheck in [address] Hernandez Code(s): Z98.890 - Other specified postprocedural states Orders: Orders Comprehensive Dendron. Panel Fast 1 Year Z00.00 - Encounter for general adult medical examination without abnormal findings Complete Blood Count Auto Diff 1 Year Z00.00 - Encounter for general adult medical examination without abnormal findings Lipid Panel 1 Year Z00.00 - Encounter for general adult medical examination without abnormal findings US abdomen complete Today R10.11 - Right upper quadrant pain Comprehensive Dendron. Panel Fast Today J45.901 - Unspecified asthma with (acute) exacerbation, Z00.00 - Encounter for general adult medical examination without abnormal findings Complete Blood Count Auto Diff Today J45.901 - Unspecified asthma with (acute) exacerbation, Z00.00 - Encounter for general adult medical examination without abnormal findings Lipid Panel Today J45.901 - Unspecified asthma with (acute) exacerbation, Z00.00 - Encounter for general adult medical examination without abnormal findings TSH reflex Free T4 Today J45.901 - Unspecified asthma with (acute) exacerbation, Z00.00 - Encounter for general adult medical examination without abnormal findings UA w Microscopic Today J45.901 - Unspecified asthma with (acute) exacerbation, Z00.00 - Encounter for general adult medical examination without abnormal findings Vitamin D 25-OH Total 1 Year Z00.00 - Encounter for general adult medical examination without abnormal findings Medications: New budesonide-formoterol 80-4.5 mcg/actuation (Symbicort) 2 puffs inhalation BID 10.2 grams 4RF omeprazole 40 mg PO DAILY 30 caps 1RF Changed From albuterol sulfate 90 mcg/actuation (Ventolin HFA) Schedule PCP appt for more refills 2 puffs inhalation Q6H PRN 8.5 grams 5RF shortness of breath or wheezing To albuterol sulfate 90 mcg/actuation (Ventolin HFA) 2 puffs inhalation Q6H PRN 8.5 grams 5RF shortness of breath or wheezing Coding Level of Care Code Est Pt Prev Care 40-64y(32388) Diagnoses Annual physical exam Z00.00 Mild asthma with acute exacerbation, unspecified whether persistent J45.901 Asthma complication type: with acute exacerbation Asthma persistence: unspecified Asthma severity: mild RUQ abdominal pain R10.11 Hx of colonoscopy Z98.890 Additional Codes SATNAM-7 Assessment Billing - SATNAM-7 Assessment Tool: SATNAM-7 Assessment 43969 ([id number])
== END 2024-06-27 11:25 | disposition home or self-care (01) ==
PROVIDERS: PCP Internal Medicine; Visit Provider Internal Medicine
DX: Z00.00 Encounter for general adult medical examination without abnormal findings (principal); J45.901 Unspecified asthma with (acute) exacerbation; R10.11 Right upper quadrant pain; Z98.890 Other specified postprocedural states

== ENCOUNTER → 2024-06-27 10:31 | Outpatient (BNVA) | payer OTHER, SELFPAY | PROVIDERS: PCP Internal Medicine; Visit Provider Internal Medicine | DX: Z00.01 Encounter for general adult medical examination with abnormal findings (principal); J45.901 Unspecified asthma with (acute) exacerbation; R10.11 Right upper quadrant pain; Z87.19 Personal history of other diseases of the digestive system | CPT/HCPCS: 96127 ==

== ENCOUNTER 2024-07-25 07:51 | Outpatient (REF) | payer OTHER, SELFPAY ==
--- NOTE | ~2024-07-25 | US_ITS ---
EXAMINATION: US ABDOMEN COMPLETE CLINICAL INFORMATION: Right upper quadrant pain. Rule out gallstones. COMPARISON: None available. TECHNIQUE: Real-time imaging of the abdominal viscera. Technically limited study secondary to bowel gas. FINDINGS: PANCREAS: The visualized portions of the pancreas are unremarkable but a large portion of the gland is obscured by bowel gas. To ABDOMINAL AORTA: The proximal, mid, and distal segments are normal in caliber. INFERIOR VENA CAVA: Visualized portions are normal. LIVER: The liver is normal in size. The liver contour is normal. Parenchymal echogenicity is normal. 2 benign hepatic cysts are present. There is no intrahepatic biliary duct dilatation seen. GALLBLADDER: The gallbladder wall is mildly thickened at 4 mm. The gallbladder is physiologically distended without evidence of stones, sludge, polyps, or pericholecystic fluid. Robison's sign is reportedly positive. COMMON BILE DUCT: Normal in caliber measuring 0.2 cm in diameter. RIGHT KIDNEY: Normal. No hydronephrosis. No renal calculi or focal parenchymal lesions. The kidney measures 10.4 cm in maximum dimension. LEFT KIDNEY: Normal. No hydronephrosis. No renal calculi or focal parenchymal lesions. The kidney measures 10.8 cm in maximum dimension. SPLEEN: Normal. The spleen measures 8.4 cm in maximum dimension. FREE FLUID: None. US/US abdomen complete IMPRESSION: Mildly thickened gallbladder wall with positive Robison's sign. No gallstones are seen. If acalculous cholecystitis is a concern, a HIDA scan may be useful for further evaluation. Electronically signed by: Cristo Thompson MD 09/22/2024 12:16 PM [facility]
== END 2024-07-25 07:52 | disposition home or self-care (01) ==
LOC: HO.US 07:51
PROVIDERS: PCP Internal Medicine; Visit Provider Internal Medicine
DX: R10.11 Right upper quadrant pain (principal)
CPT/HCPCS: 76700

== ENCOUNTER 2024-08-11 10:57 | Outpatient (REF) | payer OTHER, SELFPAY ==
[2024-08-11 13:49] LABS: MANUAL DIFF FLAG NO
[2024-08-11 13:51] LABS: Basophils Percent Auto 0.4 % (0-2); Eosinophils Absolute Auto 0.1 X10*3/uL (0.0-0.4); Eosinophils Percent Auto 1.5 % (0-4); Hematocrit 39.2 % (37.0-47.0); Hemoglobin 13.2 g/dl (12.0-16.0); Imm Gran Abs Auto 0.02 X10*3/uL (0.00-0.03); Imm Gran Pct Auto 0.4 % (0.0-0.4); Lymphocytes Absolute Auto 1.9 X10*3/uL (1.2-4.9); Mean Corpuscular HGB Conc 33.7 g/dl (31.0-35.0); Mean Corpuscular Hemoglobin 32.4 pg (27.0-33.0); Mean Corpuscular Volume 96.1 fL (80.0-98.0); Mean Platelet Volume 9.3 fL (9.4-12.3); Monocytes Absolute Auto 0.4 X10*3/uL (0.1-1.2); Monocytes Percent Auto 8.2 % (2-11); Neutrophils Absolute Auto 2.7 x10*3/uL (2.0-8.3); Neutrophils Percent Auto 52.5 % (45-73); Platelet Count 326 X10*3/uL (160-400); Red Blood Count 4.08 X10*6/uL (4.20-5.50); Red Cell Distribution Width 13.1 % (11.0-16.0); White Blood Count 5.2 X10*3/uL (4.8-10.8)
[2024-08-11 14:22] LABS: Alanine Aminotransferase 15 U/L (0-31); Albumin Level 4.4 g/dL (3.5-5.0); Alkaline Phosphatase 39 U/L (39-117); Anion Gap 14 (12-20); Aspartate Amino Transferase 22 U/L (5-31); Bilirubin Total 0.6 mg/dL (0.0-1.0); Blood Urea Nitrogen 10 mg/dL (9-16); Calcium 9.1 mg/dL (8.4-10.2); Carbon Dioxide 23 mmol/L (22-29); Chloride 107 mmol/L (96-108); Cholesterol 212 mg/dL (<200); Estimated Glomerular Filt Rate > 60; Glucose Fasting 85 mg/dL (60-99); HDL Cholesterol 54 mg/dL (>40); LDL Cholesterol Calculated 124 mg/dL (<100); Potassium 4.3 mmol/L (3.3-5.1); Sodium 140 mmol/L (135-145); Total Protein 6.9 g/dL (6.5-8.0); Triglycerides 170 mg/dL (<150)
[2024-08-11 14:37] LABS: TSH reflex Free T4 1.14 uIU/mL (0.32-4.0)
== END 2024-08-11 10:58 | disposition home or self-care (01) ==
LOC: HO.HMGCLDS 10:57
PROVIDERS: PCP Internal Medicine; Visit Provider Internal Medicine
DX: Z00.00 Encounter for general adult medical examination without abnormal findings (principal); J45.901 Unspecified asthma with (acute) exacerbation
CPT/HCPCS: 36415; 80053; 80061; 84443; 85025

== ENCOUNTER 2024-11-12 12:38 | Outpatient (AMB) | payer OTHER, SELFPAY ==
--- NOTE | 2024-11-12 13:02 | MHC.PC.OV ---
Vital Signs 11/12/24 13:03 Height 5 ft 4 in Weight 202 lb BMI 34.7 BP 128/76 Blood Pressure Location Lt brachial Position Sitting Respiration 18 Pulse 76 Pulse Source Pulse Oximeter Temp 97.9 F Temp Source Oral Pulse Oximetry (%) 98 Intake Visit Reasons: Follow up after u/s Allergies metronidazole [Flagyl] Allergy (Unknown, Verified 06/27/24 10:49) Hives carisoprodol [Soma] Adverse Reaction (Severe, Verified 06/27/24 10:49) Swelling of the face SOB Medication List - Last Reconciled 11/12/24 by Mary Ann Vick MD albuterol sulfate 90 mcg/actuation (Ventolin HFA) 2 puffs inhalation Q6H PRN fluticasone propion-salmeterol 250-50 mcg/dose (Advair Diskus) 1 inh inhalation BID omeprazole 40 mg PO DAILY Tobacco use date assessed: 06/27/24 Dental Screening Dental Screen Date: 06/27/24 HPI Follow up after u/s HPI Details Pt presents for f/u R upper abd pain resolved after patient modify her diet avoiding fatty fried foods and sodas. She has been taking omeprazole regularly and denies GERD symptoms. patient denies constipation or diarrhea, hematochezia melena. Chronic asthma is stable on albuterol and Advair only seasonally. [facility] Medical History Annual physical exam Back pain Surgical History H/O knee surgery History of section History of appendectomy No pertinent past surgical history Family History Father No problems noted. Mother HTN (hypertension) High cholesterol Myocardial infarction Mental health disorder Brother Mental health disorder Maternal Grandmother Leukemia Social History Housing: House Alcohol intake: current Alcohol intake frequency: holidays/special occasions only Patient Tobacco Use Status: Never used Tobacco e-Cigarette/Vaping Use: Never Used service: No Current occupational status: employed Cognitive needs: No Hearing needs: No Vision needs: Yes Questionnaire PHQ-9 Over the last 2 weeks, how often have you been bothered by any of the following problems? 1. Little interest or pleasure in doing things: not at all 2. Feeling down, depressed, or hopeless: not at all 3. Trouble falling or staying asleep, or sleeping too much: not at all 4. Feeling tired or having little energy: not at all 5. Poor appetite or overeating: not at all 6. Feeling bad about yourself - or that you are a failure or have let yourself or your family down: not at all 7. Trouble concentrating on things, such as reading the newspaper or watching television: not at all 8. Moving or speaking so slowly that other people could have noticed. Or the opposite - being so fidgety or restless that you have been moving around a lot more than usual: not at all 9. Thoughts that you would be better off or of hurting yourself in some way: not at all Total score: 0 Depression Screening Interpretation: Negative Depression Screening Done: Yes 58119 - PHQ-9 Billing: Yes Source: Developed by Drs. Kelby Cervantes, Saritha Crawford, Royal Barahona and colleagues, with an educational usman from [employer]. Thrive Questionnaire Date Thrive assessed: 06/27/24 I am a: Patient What is your living situation today?: I have a steady place to live Within the past 12 months, did the food you bought not last and you didn't have the money to get more?: Never true Within the past 12 months, did you worry whether your food would run out before you got money to buy more?: Never true Do you have trouble paying for medicines?: No Do you have trouble getting transportation to medical appointments?: No Do you have trouble paying your heating and electricity bill?: No Do you have trouble taking care of your child, family member or friend?: No Do you have trouble with day-to-day activities such as bathing, preparing meals, shopping, managing finances, etc.?: No Are you currently unemployed and looking for a job?: No Are you interested in more education?: No Please select the resources that you would like help with: None Currently or been in a relationship where the following occur: No concerns reported THRIVE Score: 0 AUDIT C Alcohol Use Questionnaire (AUDIT-C) 1. How often do you have a drink containing alcohol?: 2-4 times a month 2. How many drinks containing alcohol do you have on a typical day when you are drinking?: 1 or 2 3. How often do you have six or more drinks on one occasion?: Never Total Score: 2 SATNAM-7 AMB Questionnaire SATNAM-7 Date SATNAM - 7 assessed: 06/27/24 Feeling nervous, anxious, or on edge: 0 = Not at all Not being able to stop or control worryin = Not at all Worrying too much about different things: 0 = Not at all Trouble relaxin = Not at all Being so restless that it is hard to sit still: 0 = Not at all Becoming easily annoyed or irritable: 0 = Not at all Feeling afraid as if something awful might happen: 0 = Not at all Total SATNAM-7 score (0-4 normal; 5-9 mild; 10-14 moderate; 15-21 severe): 0 Source: Developed by Drs. Kelby Cervantes, Saritha Crawford, Royal Barahona and colleagues, with an educational usman from [employer]. Review of Systems Const All systems reviewed & are unremarkable except as noted in HPI and below Eyes Reports no additional complaints ENT Reports no additional complaints Card Reports no additional complaints Resp Reports no additional complaints GI Reports no additional complaints Physical exam (Primary Care) Vital Signs: Last Vital Signs Temp 97.9 F 11/12/24 13:03 Pulse 76 11/12/24 13:03 Resp 18 11/12/24 13:03 BP 128/76 11/12/24 13:03 Pulse Ox 98 11/12/24 13:03 BMI result Body Mass Index 34.7 Tobacco/Smoking Status: Tobacco use Status Tobacco use date assessed 06/27/24 11/12/24 13:05 Patient Tobacco Use Status Never used Tobacco 11/12/24 13:05 e-Cigarette/Vaping Use Never Used 11/12/24 13:05 PHQ-9: PHQ-9 Score PHQ-9: Total score 0 11/12/24 13:05 Depression Screening Interpretation: Negative Thrive Assessment: Date of Thrive Assessment Date Thrive assessed 06/27/24 11/12/24 13:05 Currently or been in a relationship where the following occur: No concerns reported Const General: no acute distress HENMT Head: Yes normal to inspection Eyes General: appearance normal, both eyes and all related structures Neck Neck: Yes supple Resp Effort & Inspection: normal respiratory effort Auscultation: clear to auscultation bilaterally Cardio Rhythm: regular rhythm Heart sounds: S1 normal heart sound present and S2 normal heart sound present GI Inspection: Yes normal to inspection Palpation (GI): Soft to palpation, nontender and No hepatosplenomegaly present Percussion: Yes normal to percussion Auscultation: normal bowel sounds Coding Level of Care Code Est Pt Level 3 (52852) Diagnoses RUQ abdominal pain R10.11 Mild asthma with acute exacerbation, unspecified whether persistent J45.901 Asthma severity: mild Asthma persistence: unspecified Asthma complication type: with acute exacerbation Additional Codes PHQ-9 - 42454 - PHQ-9 Billing: Yes ([id number]) Assessment & Plan Assessment & Plan (1) RUQ abdominal pain: Comment: US 07/2024 mildly thickened gallbladder wall positive Robison signs no gallstones Code(s): R10.11 - Right upper quadrant pain Category: Medical Plan: Resolved continue low-fat diet and omeprazole. For recurrent symptoms patient will be referred to surgeon for cholecystectomy (2) Asthma: Code(s): J45.909 - Unspecified asthma, uncomplicated Category: Medical Qualifiers: Asthma severity: mild Asthma persistence: unspecified Asthma complication type: with acute exacerbation Qualified Code(s): J45.901 - Unspecified asthma with (acute) exacerbation Plan: Continue albuterol p.r.n. Medications: Refilled omeprazole 40 mg PO DAILY 30 caps 3RF
[2024-11-12 13:03] VITALS: BP 128/76; PULSE 76; RESP 18; TEMP 36.6; O2SAT 98; BMI 34.7
--- OUTSIDE RECORDS SUMMARY | 2024-11-12 13:58 | XMS_ITS | Clinical Summary ---
Author Organization Patient Business [facility] Address [address] [place] [address] Care Team Providers Care Electronic Maintenance Supervisor Name Role Phone Mary Ann Vick MD Primary Care Provider [phone] Surgical History Surgery Date Site/Laterality Comments TONSILLECTOMY PROCEDURE: HISTORICAL TONSILLECTOMY OTHER SURGICAL HISTORY PROCEDURE: ---- OTHER ----; COMMENT: cyst removed-knee SECTION PROCEDURE: HISTORICAL DELIVERY Medical History Medical History Date Comments Bipolar affective disorder (CMS/HCC) DX:Bipolar affective disorder (HCC) Asthma DX:Asthma IUD (intrauterine device) in place 05/2020 DX:IUD (intrauterine device) in place; COMMENT: Mirena Family History Medical History Relation Name Comments Other: mood disorder Daughter 1 Bipolar disorder Mother Heart attack Mother Hyperlipidemia Mother Hypertension Mother Breast cancer Other 1 Great aunt Diabetes Other 1 Great aunt Cervical cancer Other 2 Great aunt Ovarian cancer Other 3 maternal 2nd cousin Other: mood disorder Son 1 Depression Son 2 Other: separation disorder Son 3 Relation Name Status Comments Brother Daughter 1 Alive Daughter 2 Alive Father Alive Maternal Grandfather Maternal Grandmother Mother Alive Other 1 Great aunt Other 2 Great aunt Other 3 maternal 2nd cousin Alive Paternal Grandfather Paternal Grandmother Sister Alive Son 1 Alive Son 2 Alive Son 3 Alive Son 4 Alive Social History Tobacco Use Types Packs/Day Years Used Date Smoking Tobacco: Never Smokeless Tobacco: Never Alcohol Use Standard Drinks/Week Comments Yes 0 (1 standard drink = 0.6 oz pur e alcohol) Sex and Gender Information Value Date Recorded Sex Assigned at Not on file Gender Identity Not on file Sexual Orientation Not on file Obstetrics History Last Filed Vital Signs Vital Sign Reading Time Taken Comments Blood Pressure 130/80 03/21/2024 4:00 PM EDT Pulse 70 03/21/2024 4:00 PM EDT Temperature - - Respiratory Rate - - Oxygen Saturation - - Inhaled Oxygen Concentration - - Weight 87.5 kg (193 lb) 03/21/2024 4:00 PM EDT Height - - Body Mass Index - - Plan of Treatment Upcoming Encounters Date Type Department Care Team (David sanchez Contact Info) Description 06/03/2025 4:20 PM EDT Appointment Radiology Department - [address] [address] Health Maintenance Due Date Last Done Comments DTaP,Tdap,and Td Vaccines (1 - Tdap) 1993 Hepatitis B Vaccines (1 of 3 - 19+ 3-dose series) 1993 Colorectal Cancer Screening: Colonoscopy 09/12/2022 Depression Screening 09/12/2022 HIV Screening 09/12/2022 Hepatitis C Screening 09/12/2022 Social Influencers of Health Screening 09/12/2022 COVID-19 Vaccine (1 - 2023-2 5 season) 2024 Influenza Vaccine (#1) 2024 1, 06/20/2009 Zoster Vaccines (1 of 2) 2024 Breast Cancer Screening 05/30/2026 05/30/20, 05/30/2024, 11/06/2018 Cervical Cancer Screening: P ap Smear 12/20/2026 12/21/2023 HIB Vaccines Aged Out No longer eligi ble based on patient's age to complete this topic HPV Vaccines Aged Out No longer eligi ble based on patient's age to complete this topic Hepatitis A Vaccines Aged Out No long er eligible based on patient's age to complete this topic IPV Vaccines Aged Out No longer eligi ble based on patient's age to complete this topic MMR Vaccines Aged Out No longer eligi ble based on patient's age to complete this topic Meningococcal ACWY Vaccine Aged Out N o longer eligible based on patient's age to complete this topic Pneumococcal Vaccine: Pediatrics (0 to 5 Years) and At-Risk Patients (6 to 64 Years) Aged Out No longer eligible b ased on patient's age to complete this topic RSV Immunization Patients Under 20 months Aged Out No longer eligible b ased on patient's age to complete this topic Varicella Vaccines Aged Out No longer eligible based on patient's age to complete this topic Procedures Procedure Name Priority Date/Time Associated Diagnosis Comments SCREENING MAMMOGRAPHY BI 2-VIEW BREAST INC CAD Routine 05/30/2024 8:08 AM EDT Encounter for screening mammogram for malignant neoplasm of breast PAP SMEAR Routine 12/21/2023 from Last 3 Months or Most Recently Relevant to Health Maintenance Results * SCREENING MAMMOGRAPHY BI 2-VIEW BREAST INC CAD (05/30/2024 8:08 AM EDT) Anatomical Region Laterality Modality Radiographic Sandra ging 01/23/2024 6:53 PM EDT Narrative 05/30/2024 10:23 AM EDT This is a summary report. The complete report is available in the patient's medical record. If you cannot access the medical record, please contact the sending organization for a detailed fax or copy. Full field digital screening tomosynthesis mammography, reviewed with CAD and compared to previous. The breast tissue is heterogeneously dense, limiting sensitivity. No suspicious mass, architectural distortion or suspicious calcifications are identified. IMPRESSION: : Dense breast tissue, limiting the sensitivity of mammography. No mammographic evidence of malignancy. BIRADS 1-Negative; N. 5 year breast cancer risk assessment 0.5 % Lifetime breast cancer risk assessment 4.7 % Breast cancer risk category Low (<15%) Procedure Note Gold Verde MD - 07/25/2024 This is a summary report. The complete report is available in thepatient's medical record. If you cannot access the medical record, pleasecontact the sending organization for a detailed fax or copy. Full field digital screening tomosynthesis mammography, reviewed with CADand compared to previous. The breast tissue is heterogeneously dense,limiting sensitivity. No suspicious mass, architectural distortion orsuspicious calcifications are identified. IMPRESSION: : Dense breast tissue, limiting the sensitivity of mammography. Nomammographic evidence of malignancy. BIRADS 1-Negative; N. 5 year breast cancer risk assessment 0.5 % Lifetime breast cancer risk assessment 4.7 % Breast cancer risk category Low (<15%) Caroline Car CNBen IMG XR PROCEDURES * Pap smear (12/21/2023) 12/21/2023 Narrative HISTORICAL TESTING LAB RESULTING AGENCY - 12/29/2023 9:55 AM EDT [id number] THINPREP PAP, IMAGED: ATYPICAL SQUAMOUS CELLS OF UNDETERMINED SIGNIFICANCE (ASCUS) . FUNGAL ORGANISMS MORPHOLOGICALLY CONSISTENT WITH MIKHAIL SPP. JAJA BONNER M.D. , PATHOLOGIST (CASE ELECTRONICALLY SIGNED 12 29 2023) RESULT OF APTIMA HIGH RISK HPV ASSAY: HIGH RISK HPV: ??POSITIVE (SEROTYPES 16,18,31,33,35,39,45,51,52,56,58,59,66,68) RESULTS OF APTIMA HPV 16 AND 18/45 GENOTYPE ASSAY: HPV 16: ??NEGATIVE HPV 18/45: ??NEGATIVE COMPLETED ON 2023-12-26 ADEQUACY: SATISFACTORY ENDOCERVICAL/TRANSFORMATION ZONE COMPONENT PRESENT. SOURCE: THINPREP PAP HPV ANY DX: ??REFLEX 16 AND 18, CERVICAL, IMAGED CLINICAL INFORMATION: HPV ANY DIAGNOSIS. PAP HX NEGATIVE, IUD, [Z01.419] Caroline [facility] CYTOLOGY ORDERAB LES HISTORICAL TESTING LAB RESULTING AGENCY from Last 3 Months or Most Recently Relevant to Health Maintenance Care Teams Electronic Maintenance Supervisor Relationship Specialty Start Date End Date Mary Ann Vick MD PCP - General 10/20/08
--- OUTSIDE RECORDS SUMMARY | 2024-11-12 13:58 | XMS_ITS | Data Portability ---
Author Organization [place] - [facility] [address] Address [address] [place] [address] Care Team Providers Care General Cleaner Name Role Phone LILLIE CAST Primary Care Provider Assessment No assessment recorded. Plan of Treatment Reminders Order Date Submit Date Provider Last Modified By Organization Details Last Modified Time Details Appointments None recorded. Lab None recorded. Referral None recorded. Procedures None recorded. Surgeries None recorded. Imaging None recorded. Medication Orders amoxicillin 875 mg tablet 2022 023 [id number], [address] [place], [address], 19:50:46 Patient TargetsNo targets recorded. Patient Instructions Encounter Date Encounter Id Patient Instructions Last Modified By Organization Details Last Modified Time 12/24/2022 [id number] ear infection (otitis media): care instructions [email or web address] Not available 12/24/2022 19:50:44 Reason for Referral None Reported. Problems Name Problem SNOMED Code Status Onset Date Resolution Date Notes Provider Name and Address Organization Details Recorded Time Asthma [id number] Active 023 LORETA jeter, [place] - [facility] 12/24/2022 19:04:13 Problem Notes None recorded. Procedures Surgical History Date Name Laterality Status Provider Name and Address Organization Details Recorded Time procedure on knee completed LORETA BARKSDALETEA U [place] - [facility] 12/24/2022 19:04:24 tonsillectomy and adenoidectomy completed LORETA LINDSAY [place] - [facility] 12/24/2022 19:04:38 Imaging Results None recorded. Procedure Notes None recorded. Medical Equipment None Reported. Allergies Allergen ID Allergen Name Allergen Category Reaction Reaction Severity Criticality Documentation Date Start Date Code Code System Note Provider Name and Address Organization Details Recorded Time 859030 Soma medicatio n angioedem a Not available Not available 12/24/2022 2 RxNorm LORETA MONTOYA null, [place] - [facility] 3 19:04:53 [id number] Flagyl medicatio n hives Not available Not available 12/24/2022 6 RxNorm LORETA MONTOYA null, [place] - [facility] 3 19:05:03 Medications Name Sig Start Date Stop Date Status Note LastModified by Organization Details LastModified Time Mirena 21 mcg/24 hr (up to 8 years) 52 mg intrauterin e device Take by intrauter ine route. active Not Available Not Available No t Available methocarbam ol 500 mg tablet TAKE 1 TABLET BY MOUTH EVERY 6 HOURS NEEDED FOR PAIN AND/OR MUSCLE SPASMS 12/24 completed Not Available Not Available Not Available azithromyci n 250 mg tablet TAKE 2 TABLETS BY MOUTH TODAY, THEN TAKE 1 TABLET DAILY FOR 4 DAYS 12/24 completed Not Available Not Available Not Available prednisone 20 mg tablet TAKE 1 TABLET BY MOUTH 2 TIMES PER DAY FOR 5 DAYS TAKE WITH FOOD 12/24 completed Not Available Not Available Not Available amoxicillin 875 mg tablet Take 1 tablet every 12 hours by oral route for 10 days. 2022 active Not Available Not Available Not Avai lable ProAir HFA 90 mcg/actuati on aerosol inhaler INHALE 2 PUFFS EVERY 4 HOURS NEEDED FOR DYSPNEA active Not Available Not Available No t Available Vitals Date Recorded Body height Body mass index (BMI) Body weight Pain severity - 0-10 verbal numeric rating [Score] - Reported Oxygen saturation Oxygen saturation in Arterial blood by Pulse oximetry Heart rate Respiratory rate Body temperature Systolic blood pressure Diastolic blood pressure Provider Name and Address Organization Details Last Updated DateTime 3 157.48 cm 16.3 kg/m2 72754.7 2 g 8 99 % 99 % 74 /min 16 /min 98.3 [degF] 119 mm[Hg] 84 mm[Hg] LORETA MONTOYA [place] - [facility] 3 19:08:28 Social History Question Answer Notes LastModified by Organizat ion Details LastModified Time Tobacco Smoking Status Never Smoker LORETA BARKSDALETEAU null, [place] - [facility] 12/24/2022 19:05:30 What Is Your Level Of Alcohol Consumption? Occasional Information not available 12/24/2022 Are You Currently Employed? Yes Information not available 12/24/2022 Do You Use Any Illicit Or Recreational Drugs? No Information not available 12/24/2022 Have You Recently Traveled Abroad? No Information not available 12/24/2022 Do You Or Have You Ever Used Any Other Forms Of Tobacco Or Nicotine? No Information not available 12/24/2022 Sex: Unknown Functional Status None recorded. Mental Status None recorded. Family History Nothing Reported. Medical History No medical history recorded. Gynecological History Statement/Question Response IUD Obstetrics History GPAL:G 0 P 0 0 0 0 Immunizations Vaccine Type Date Status Note Provider Nam e and Address Organization Details Recorded Time COVID-19, mRNA, LNP-S, PF, 30 mcg/0.3 mL dose 1 completed LORETA LINDSAY null, [place] - [facility] 12/24/2022 19:03:59 COVID-19, mRNA, LNP-S, PF, 30 mcg/0.3 mL dose 1 completed LORETA LINDSAY null, [place] - [facility] 12/24/2022 19:03:59 Tdap 8 completed LORETA LINDSAY null, [place] - [facility] 12/24/2022 19:03:59 Influenza, split virus, trivalent, preservative 9 completed LORETA LINDSAY null, [place] - [facility] 12/24/2022 19:03:59 Influenza, split virus, trivalent, preservative 1 completed LORETA LINDSAY null, [place] - [facility] 12/24/2022 19:03:59 Influenza, split virus, quadrivalent, PF 0 completed LORETA LINDSAY null, [place] - [facility] 12/24/2022 19:03:59 Influenza, split virus, quadrivalent, PF 1 completed LORETA LINDSAY null, [place] - [facility] 12/24/2022 19:03:59 Past Encounters Encounter ID Performer Location Encounter Start Date Encounter Closed Date Diagnosis/Indication Diagnosis SNOMED-CT Code Diagnosis ICD10 Code Diagnosis Note [id number] [address] [place] [address] 09/24/2020 08:44:43 09/24/2020 10:17:19 [id number] [address] [place] [address] 10/24/2019 16:32:58 10/24/2019 17:12:08 [id number] [address] [place] [address] 04/07/2022 16:34:36 04/07/2022 17:10:57 [id number] [address] [place] [address] 06/07/2019 16:31:21 06/07/2019 17:43:50 [id number] [address] [place] [address] 04/18/2019 16:41:58 04/18/2019 17:37:45 [id number] [address] [place] [address] 08/12/2021 12:20:30 08/12/2021 13:44:08 [id number] [address] [place] [address] 09/10/2020 09:35:32 09/10/2020 10:50:30 [id number] [facility] [address] [address] [place] [address] 12/24/2022 17:01:32 12/24/2022 19:52:01 Acute right otitis media 825495262 H66.91 Given Hx and Sx and PE findings will Rx Antibiotic s Take antibiotic with food. Eat a yogurt daily or take a probiotic while taking the antibiotic . Recommend humidified airrest, fluidstyle nol/ibu prnNo swimming x 1 week Patient advised to follow up as needed for worsening symptoms or no improvemen t. Discussed concerning red flags with patient and reasons to follow up in the Emergency Department urgently. Health Concerns Section Related Observation LastModified by Organization Detai ls LastModified Time None Recorded Concern Status LastModified by Organization Details LastModified Time None Recorded Advance Directives Directive None Recorded Payers Encounter Date Sequence Insurance Name Policy Number Policy Pulido Covered Member ID Pulido Member ID Guarantor Name 09/10/2020 1 [facility] (MEDICAID HMO) [employer] Madelyn Schumacher [id number] Madelyn Schumacher 09/24/2020 1 [facility]AN (MEDICAID HMO) [employer] Madelyn Schumacher [id number] Madelyn Schumacher 08/12/2021 1 [facility] (MEDICAID HMO) [employer] Madelyn Schumacher [id number] Madelyn Schumacher 04/07/2022 1 [facility] PL[facility] (MEDICAID HMO) [employer] Madelyn Schumacher [id number] Madelyn Schumacher 12/24/2022 1 [facility] [id number] Madelyn Schumacher [id number] Madelyn Schumacher Notes Date Note Type Note Provider Name and Address Organization Details Recorded Time 12/24/2022 text/html Ear Pain Brief HPIReported bypatient.Notes:47 y o femal c/o R ear pain x 1 d no ear traumano d/cno swimming No feverNo chillsNo coughNo difficulty breathing or respiratory distressNo CPNo congestionNo sore throatNo Abdominal painNo nauseaNo vomitingNp diarrheaNo myalgiaNo fatigueNo rashNo HANo dizzinessNo recent travelNo known sick contacts Paul Nino, DO [address] [place], [address], [place] - [facility] 12/24/2022 19:52:43 OBGyn Episode No OBEpisode recorded.
== END 2024-11-12 13:42 | disposition home or self-care (01) ==
PROVIDERS: PCP Internal Medicine; Visit Provider Internal Medicine
DX: R10.11 Right upper quadrant pain (principal); J45.901 Unspecified asthma with (acute) exacerbation

== ENCOUNTER → 2024-11-12 12:38 | Outpatient (BNVA) | payer OTHER, SELFPAY | PROVIDERS: PCP Internal Medicine; Visit Provider Internal Medicine | DX: R10.11 Right upper quadrant pain (principal); J45.901 Unspecified asthma with (acute) exacerbation | CPT/HCPCS: 96127 ==

== ENCOUNTER → 2024-11-30 07:34 | Outpatient (REF) | payer OTHER, SELFPAY ==
--- NOTE | ~2024-11-30 | NM_ITS ---
EXAMINATION: NM BILIARY TRACT CLINICAL INFORMATION: Right upper quadrant pain, rule out cholecystitis. COMPARISON: Ultrasound 07/25/2024. TECHNIQUE: Dynamic hepatobiliary scan was performed after the IV administration of 4.91 mCi technetium 99m-mebrofenin. Images obtained every 2 minutes for 1 hour. Subsequently, 1.85 mcg of CCK was administered over 30 minutes one hour postinjection. Dynamic images obtained every 2 minutes following injection for a total of 1.5 hours. FINDINGS: There is rapid uptake of radiotracer into the hepatic parenchyma, and rapid excretion into the biliary ducts. No photopenic defect. There is visualization of the gallbladder normally thinning at 12 minutes. Post CCK injection, marked activity within the gallbladder, indicating cystic duct patency. Dynamic images show expected clearing of activity from the hepatic parenchyma into the biliary ducts, and excretion into the small bowel beginning at approximately 1 hour 17 minutes. Gallbladder ejection fraction is 95% radiating at 5 minutes post CCK injection (T Max), and ending at 29 minutes (T Min). Ejection fraction at 10 minutes is 27%. Ejection fraction at 20 minutes is 84% Ejection fraction at 30 minutes is 95%. NM/NM hepatobiliary w pharm IMPRESSION: Normal hepatobiliary scan with normal visualization of the gallbladder, and normal gallbladder ejection fraction of 95%. Electronically signed by: Karsten Moralez MD 11/30/2024 10:30 AM EMELINA
== END ==
LOC: HO.NUCMED 07:34
PROVIDERS: PCP Internal Medicine; Visit Provider Internal Medicine
DX: R10.11 Right upper quadrant pain (principal)
CPT/HCPCS: 78227; A9537; J2805

== ENCOUNTER → 2024-11-30 07:36 | Outpatient (BNV) | payer OTHER, SELFPAY | PROVIDERS: PCP Internal Medicine; Visit Provider Radiology Diagnostic Radiology | DX: R10.11 Right upper quadrant pain (principal) | CPT/HCPCS: 78227 ==

== ENCOUNTER 2025-05-22 13:57 | Outpatient (AMB) | payer OTHER, SELFPAY ==
[2025-05-22 14:03] VITALS: BP 134/90; PULSE 69; TEMP 36.7; O2SAT 99; BMI 34.7
--- NOTE | 2025-05-22 14:03 | MHC.OFFWIV ---
Intake Vital Signs 05/22/25 14:03 05/22/25 14:11 Height 5 ft 4 in Weight 202 lb BMI 34.7 BP 134/90 H 144/84 H Blood Pressure Location Lt brachial Rt brachial Position Sitting Sitting Pulse 69 Pulse Source Pulse Oximeter Temp 98.0 F Temp Source Oral Pulse Oximetry (%) 99 Oxygen Delivery Method Room Air Intake Visit Reasons: EP-HBP 160 over 98/dizziness Intake Note: presents with concerns for high blood pressure. c/o neck pain, indigestion, stomach ache, lightheaded and dizzy Patient Tobacco Use Status: Never used Tobacco Allergies metronidazole (Flagyl) Allergy (Unknown, Verified 05/22/25 14:07) Hives carisoprodol (Soma) Adverse Reaction (Severe, Verified 05/22/25 14:07) Swelling of the face SOB Do you need a note to return to daycare/school/sports/work: Yes HPI HPI Comments History of Present Illness Details History of Present Illness - The patient is a 49-year-old female presenting with dizziness and elevated blood pressures. - Dizziness began yesterday during cooking, with intermittent lightheadedness. - This morning, symptoms persisted with additional abdominal pain, leading to urgent care visit. - Blood pressure at work today was 160/98 mmHg. - Today in the clinic, her readings were 134/90 mmHg and 144/84 mmHg. - No routine home blood pressure monitoring or hypertension treatment history. - She tells me she follows a healthy diet, but notes being overweight, does not eat a lot of salt. - Does not smoke as per records. Physical Exam General: Cooperative, healthy appearing, comfortable, no acute distress and well developed Orientation: Patient oriented x3 Limitations: No limitations Head: Normal to inspection Ears: Hearing grossly normal bilaterally Nose: Normal External nose present Face and sinus: Normal facial exam Eyes: Appearance normal, both eyes and all related structures Neck: Normal visual inspection and Yes full ROM Respiratory: Normal respiratory effort and able to speak in complete sentences. Skin: No rashes or lesions noted Neuro: Patient oriented x3 Extremities: Normal to inspection [facility] Medical History Annual physical exam Back pain Surgical History H/O knee surgery History of section History of appendectomy No pertinent past surgical history Family History Father No problems noted. Mother HTN (hypertension) High cholesterol Myocardial infarction Mental health disorder Brother Mental health disorder Maternal Grandmother Leukemia Social History Housing: House Alcohol intake: current Alcohol intake frequency: holidays/special occasions only Patient Tobacco Use Status: Never used Tobacco e-Cigarette/Vaping Use: Never Used service: No Current occupational status: employed Cognitive needs: No Hearing needs: No Vision needs: Yes Review of Systems Const All systems reviewed & are unremarkable except as noted in HPI and below Physical Exam Vital Signs: Last Vital Signs Temp 98.0 F 05/22/25 14:03 Pulse 69 05/22/25 14:03 BP 144/84 H 05/22/25 14:11 Pulse Ox 99 05/22/25 14:03 Oxygen Delivery Method Room Air 05/22/25 14:03 BMI result Body Mass Index 34.7 Assessment & Plan Assessment & Plan (1) Elevated blood pressure reading without diagnosis of hypertension: Code(s): R03.0 - Elevated blood-pressure reading, without diagnosis of hypertension Plan: Plan - Obtain a blood pressure cuff (we will do this for her) and monitor blood pressure twice daily for one week. Make a log, note if you are feeling dizzy or develop a headache with the readings. - Maintain a low-salt diet and eat healthy to manage blood pressure. - Schedule a follow-up with a nurse navigator to review blood pressure readings. - Consider antihypertensive medication if blood pressure remains elevated. - Seek emergency care for high blood pressure with symptoms like headache or dizziness. Patient was informed and verbally consented to the use of an ambient scribe for clinic note documentation during this visit. Coding Level of Care Code Est Pt Level 3 (12911) Diagnoses Elevated blood pressure reading without diagnosis of hypertension R03.0
[2025-05-22 14:11] VITALS: BP 144/84
--- OUTSIDE RECORDS SUMMARY | 2025-05-22 14:20 | XMS_ITS | Patient Health Record ---
Author Organization [facility] Paol[facility]harath Romeo Address [address] [place] [address] Care Team Providers Care Packager Machine Name Role Phone Mary Ann Vick MD Primary Care Provider Chirs Schmidt Unavailable [phone] Allergies Allergen (clinical drug ingredient) Drug/Non Drug Allergy documented on EMR Reaction Allergy Type Onset Date Status metronidazole Flagyl Unknown Drug Allergy Act mono carisoprodol Soma Unknown Drug Allergy Acti ve Reason For Referral No Information Medications Medication SIG (Take, Route, Frequency, Duration) Notes Start Date End Date Status Sertraline HCl 50 MG 1 tablet Orally Onc e a day Active Montelukast Sodium 10 MG 1 tablet in the evening Orally Once a day Active Albuterol PRN 2 puffs Active Advair HFA 45-21 MCG/ACT 2 puffs Inhalat ion Twice a day Active Social History Tobacco Use: Social History Observation Description Date Details (start date - stop date) Never Smoker NA - NA Tobacco Use/Smoking Question Answer Notes Are you a: nonsmoker Additional Findings: Tobacco Non-User Current no n-smoker Alcohol Screen Question Answer Notes Did you have a drink containing alcohol in the p ast year? Yes Points 0 Interpretation Negative Tobacco use other than smoking: Question Answer Notes Are you an other tobacco user? No Problems Problem Type SNOMED Code ICD Code Onset Dates Problem Status W/U Status Risk Notes Problem Ganglion of foot (139552232) Ganglion of foot, right (M67.471) Active confirmed Plan Of Treatment Pending Test Test Name Order Date Ultrasound : Lower Extremity, right /06/2017 Insurance Providers Payer Name Payer Address Payer Phone Subscriber Number Group Number Insured Name Patient Relationship to Insured Coverage Start Date Coverage End Date Cigna [address] [place] [phone] [id number] SchumacherMary luuissa Self - patient is the insured Medical (General) History Medical History History ICD Code Anxiety disorder asthma Back,Hip,and Knee pain Depression Headaches Chicken pox Surgical History Surgery Date(Month/Year) knee surgery 1989
--- OUTSIDE RECORDS SUMMARY | 2025-05-22 14:20 | XMS_ITS | Clinical Summary ---
Author Organization [facility] Address [address] [place] [address] Care Team Providers Care President And Ceo Name Role Phone Mary Ann Vick MD Primary Care Provider [phone] Surgical History Surgery Date Site/Laterality Comments TONSILLECTOMY PROCEDURE: HISTORICAL TONSILLECTOMY OTHER SURGICAL HISTORY PROCEDURE: ---- OTHER ----; COMMENT: cyst removed-knee SECTION PROCEDURE: HISTORICAL DELIVERY Medical History Medical History Date Comments Bipolar affective disorder ( [facility] V24, [facility] V28) DX:Bipolar affective disorde r ([facility]) Asthma DX:Asthma IUD (intrauterine device) in place [...] drink = 0.6 oz pur e alcohol) Comments Unknown Sex and Gender Information Value Date Recorded Sex Assigned at Not on file Legal Sex Female 12:48 AM EST Gender Identity Not on file Sexual Orientation [...] Upcoming Encounters Date Type Department Care Team (Late st Contact Info) Description 06/03/2025 4:20 PM EDT Appointment Radiology Department [address] [address] Health Maintenance Due Date Last Done Comments DTaP,Tdap,and Td Vaccines (1 - Tdap) 1993 Hepatitis B Vaccines (1 of 3 - 19+ 3-dose series) 1993 Colorectal Cancer Screening: Colonoscopy 09/12/2022 HIV Screening 09/12/2022 Hepatitis C Screening 09/12/2022 Social Influencers of Health Screening 09/12/2022 COVID-19 Vaccine (1 - 2023-2 5 season) 2024 Pneumococcal Vaccine: 50+ Years (1 of 1 - PCV) 2024 Zoster Vaccines (1 of 2) 2024 Depression Screening 10/10/2024 Influenza Vaccine (#1) 2025 , 06/20/2009 Breast Cancer Screening 05/30/2026 05/30/20, 05/30/2024, 11/06/2018 [...] patient's age to complete this topic Meningococcal B Vaccine Aged Out No l onger eligible based on patient's age to complete [...] % Breast cancer risk category Low (<15%) us Caroline Car CNM IMG XR PROCEDURES Final Result * Pap smear (12/21/2023) 12/21/2023 Narrative HISTORICAL TESTING LAB RESULTING AGENCY - 12/29/2023 9:55 AM EDT [id number] THINPREP PAP, IMAGED: ATYPICAL SQUAMOUS CELLS OF UNDETERMINED SIGNIFICANCE (ASCUS) . FUNGAL ORGANISMS MORPHOLOGICALLY CONSISTENT WITH MIKHAIL SPP. JAJA BONNER M.D. , PATHOLOGIST (CASE ELECTRONICALLY SIGNED 12 29 2023) RESULT OF APTIMA HIGH RISK HPV ASSAY: HIGH RISK HPV: POSITIVE (SEROTYPES 16,18,31,33,35,39,45,51,52,56,58,59,66,68) RESULTS OF APTIMA HPV 16 AND 18/45 GENOTYPE ASSAY: HPV 16: NEGATIVE HPV 18/45: NEGATIVE COMPLETED ON 2023-12-26 ADEQUACY: SATISFACTORY ENDOCERVICAL/TRANSFORMATION ZONE COMPONENT PRESENT. SOURCE: THINPREP PAP HPV ANY DX: REFLEX 16 AND 18, CERVICAL, IMAGED CLINICAL INFORMATION: HPV ANY DIAGNOSIS. PAP HX NEGATIVE, IUD, [Z01.419] Caroline Car CNM LAB CYTOLOGY ORDERABLES Final Result HISTORICAL TESTING LAB RESULTING AGENCY from Last 3 Months or Most Recently Relevant to Health Maintenance Care Teams President And Ceo Relationship Specialty Start Date End Date Mary Ann Vick MD PCP - General 10/20/08
== END 2025-05-22 15:12 | disposition home or self-care (01) ==
PROVIDERS: PCP Internal Medicine; Visit Provider Physician Assistant
DX: R03.0 Elevated blood-pressure reading, without diagnosis of hypertension (principal)

== ENCOUNTER 2025-06-03 09:03 | Outpatient (REF) | payer OTHER, SELFPAY ==
--- OUTSIDE RECORDS SUMMARY | 2025-06-03 09:45 | XMS_ITS | Clinical Summary ---
Author Organization [facility] Address [address] [address] Care Team Providers Care Business Management Specialist Name Role Phone Mary Ann Vick MD Primary Care Provider [phone] Surgical History Surgery Date Site/Laterality Comments TONSILLECTOMY PROCEDURE: HISTORICAL TONSILLECTOMY OTHER SURGICAL HISTORY PROCEDURE: ---- OTHER ----; COMMENT: cyst removed-knee SECTION PROCEDURE: HISTORICAL DELIVERY Medical History Medical History Date Comments Bipolar affective disorder ( [facility] V24, [facility] V28) DX:Bipolar affective disorde r ([facility]) Asthma DX:Asthma IUD (intrauterine device) in place [...] 4:20 PM EDT Appointment Radiology Department - [address] [address] Health Maintenance Due Date Last Done Comments [...] Depression Screening 10/10/2024 Influenza Vaccine (#1) 2025 1, 06/20/2009 Breast Cancer Screening 05/30/2026 05/30/20, 05/30/2024, [...] cancer risk category Low (<15%) Caroline Car CNM IMG XR PROCEDURES Final Result * Pap smear (12/21/2023) 12/21/2023 Narrative HISTORICAL TESTING LAB RESULTING AGENCY - 12/29/2023 9:55 AM EDT [id number] THINPREP PAP, IMAGED: ATYPICAL SQUAMOUS CELLS OF [...] or Most Recently Relevant to Health Maintenance Insurance [facility] Care Teams Business Management Specialist Relationship Specialty Start Date End Date Mary Ann Vick MD PCP - General 10/20/08
--- OUTSIDE RECORDS SUMMARY | 2025-06-03 09:45 | XMS_ITS | Patient Health Record ---
Author Organization [facility] Address [address] [place] [address] Care Team Providers Care Vacation Guide Name Role Phone Mary Ann Vcik MD Primary Care Provider Chris Schmidt Unavailable [phone] Allergies Allergen (clinical drug ingredient) Drug/Non Drug [...] Status Risk Notes Problem Ganglion of foot (099720414) Ganglion of foot, right (M67.471) Active confirmed Plan Of Treatment Pending Test Test Name Order Date Ultrasound : Lower Extremity, right /06/2017 Insurance Providers Payer Name Payer Address Payer Phone Subscriber Number Group Number Insured Name Patient Relationship to Insured Coverage Start Date Coverage End Date [employer] [address] [place] [address] [phone] [id number] SchumacherMary luuissa Self - patient is the insured Medical (General) History Medical History History ICD Code Anxiety disorder asthma Back,Hip,and Knee pain Depression Headaches Chicken pox Surgical History Surgery Date(Month/Year) knee surgery 1989
[2025-06-03 13:14] LABS: Appearance Urine Cloudy; Glucose Urine UA Negative (Negative); PH 5.5 (5.0-9.0); Specific Gravity - Urine 1.010 (1.005-1.025); UMIC TRIGGER UA YES
[2025-06-03 13:34] LABS: MANUAL DIFF FLAG NO
[2025-06-03 13:42] LABS: Hematocrit 38.4 % (37.0-47.0); Hemoglobin 12.9 g/dl (12.0-16.0); Imm Gran Abs Auto 0.01 X10*3/uL (0.00-0.03); Imm Gran Pct Auto 0.2 % (0.0-0.4); Lymphocytes Absolute Auto 2.1 X10*3/uL (1.2-4.9); Mean Corpuscular HGB Conc 33.6 g/dl (31.0-35.0); Mean Corpuscular Hemoglobin 31.9 pg (27.0-33.0); Mean Corpuscular Volume 95.0 fL (80.0-98.0); NRBC Abs Auto 0.000 X10*3/uL (0.0-0.012); NRBC Pct Auto 0.0 /100WBC (0.0-0.2); Platelet Count 311 X10*3/uL (160-400); Red Blood Count 4.04 X10*6/uL (4.20-5.50); White Blood Count 5.7 X10*3/uL (4.8-10.8)
[2025-06-03 14:13] LABS: Alanine Aminotransferase 16 U/L (0-31); Albumin Level 4.5 g/dL (3.5-5.0); Alkaline Phosphatase 38 U/L (39-117); Anion Gap 11 (12-20); Aspartate Amino Transferase 26 U/L (5-31); Blood Urea Nitrogen 9 mg/dL (9-16); Calcium 8.9 mg/dL (8.4-10.2); Carbon Dioxide 25 mmol/L (22-29); Chloride 107 mmol/L (96-108); Cholesterol 180 mg/dL (<200); Estimated Glomerular Filt Rate > 60; HDL Cholesterol 52 mg/dL (>40); Potassium 4.4 mmol/L (3.3-5.1); Sodium 139 mmol/L (135-145); Total Protein 6.7 g/dL (6.5-8.0); Triglycerides 143 mg/dL (<150)
== END 2025-06-03 09:04 | disposition home or self-care (01) ==
LOC: HO.HMGCLDS 09:03
PROVIDERS: PCP Internal Medicine; Visit Provider Internal Medicine
DX: Z00.00 Encounter for general adult medical examination without abnormal findings (principal); J45.901 Unspecified asthma with (acute) exacerbation; Z13.6 Encounter for screening for cardiovascular disorders
CPT/HCPCS: 36415; 80053; 80061; 81001; 82306; 85025

== ENCOUNTER 2025-07-01 08:22 | Outpatient (AMB) | payer OTHER, SELFPAY ==
[2025-07-01 08:24] VITALS: BP 120/78; PULSE 64; RESP 18; TEMP 36.7; O2SAT 97; BMI 34.8
--- NOTE | 2025-07-01 08:24 | MHC.PC.OV ---
Vital Signs 07/01/25 08:24 Height 5 ft 4 in Weight 203 lb BMI 34.8 BP 120/78 Blood Pressure Location Lt brachial Position Sitting Respiration 18 Pulse 64 Pulse Source Pulse Oximeter Temp 98.0 F Temp Source Oral Pulse Oximetry (%) 97 Oxygen Delivery Method Room Air Intake Visit Reasons: Annual Visit Allergies metronidazole (Flagyl) Allergy (Unknown, Verified 07/01/25 08:26) Hives carisoprodol (Soma) Adverse Reaction (Severe, Verified 07/01/25 08:26) Swelling of the face SOB Medication List - Last Reconciled 07/01/25 by Mary Ann Vick MD albuterol sulfate 90 mcg/actuation (Ventolin HFA) 2 puffs inhalation Q6H PRN blood pressure test kit-large As directed fluticasone propion-salmeterol 250-50 mcg/dose (Advair Diskus) 1 inh inhalation BID meclizine 25 mg PO BID PRN omeprazole 40 mg PO DAILY Tobacco use date assessed: 07/01/25 Dental Screening Dental Screen Date: 07/01/25 Did you have a dental visit in the last 12 months?: Yes Did you have a dental problem in the last 6 months where you did not have access to dental care?: No Was dental information given to patient?: Patient has dentist [facility] Medical History (Updated 07/01/25 @ 09:15 by Mary Ann Vick MD) Overweight Asthma Normal pelvic exam Annual physical exam Back pain Surgical History (Updated 07/01/25 @ 09:14 by Mary Ann Vick MD) Hx of colonoscopy H/O knee surgery History of section History of appendectomy No pertinent past surgical history Family History Father No problems noted. Mother HTN (hypertension) High cholesterol Myocardial infarction Mental health disorder Brother Mental health disorder Maternal Grandmother Leukemia Social History Housing: House Alcohol intake: current Alcohol intake frequency: holidays/special occasions only Patient Tobacco Use Status: Never used Tobacco e-Cigarette/Vaping Use: Never Used service: No Current occupational status: employed Cognitive needs: No Hearing needs: No Vision needs: Yes Questionnaire PHQ-9 Over the last 2 weeks, how often have you been bothered by any of the following problems? 1. Little interest or pleasure in doing things: not at all 2. Feeling down, depressed, or hopeless: not at all 3. Trouble falling or staying asleep, or sleeping too much: not at all 4. Feeling tired or having little energy: not at all 5. Poor appetite or overeating: not at all 6. Feeling bad about yourself - or that you are a failure or have let yourself or your family down: not at all 7. Trouble concentrating on things, such as reading the newspaper or watching television: not at all 8. Moving or speaking so slowly that other people could have noticed. Or the opposite - being so fidgety or restless that you have been moving around a lot more than usual: not at all 9. Thoughts that you would be better off or of hurting yourself in some way: not at all Total score: 0 Depression Screening Interpretation: Negative Depression Screening Done: Yes 41927 - PHQ-9 Billing: Yes Source: Developed by Drs. Kelby Cervantes, Saritha Crawford, Royal Barahona and colleagues, with an educational usman from [employer]. Thrive Questionnaire Date Thrive assessed: 07/01/25 I am a: Patient What is your living situation today?: I have a steady place to live Within the past 12 months, did the food you bought not last and you didn't have the money to get more?: Never true Within the past 12 months, did you worry whether your food would run out before you got money to buy more?: Never true Do you have trouble paying for medicines?: No Do you have trouble getting transportation to medical appointments?: No Do you have trouble paying your heating and electricity bill?: No Do you have trouble taking care of your child, family member or friend?: No Do you have trouble with day-to-day activities such as bathing, preparing meals, shopping, managing finances, etc.?: No Are you currently unemployed and looking for a job?: No Are you interested in more education?: No Please select the resources that you would like help with: None Currently or been in a relationship where the following occur: No concerns reported THRIVE Score: 0 AUDIT C Alcohol Use Questionnaire (AUDIT-C) 1. How often do you have a drink containing alcohol?: 2-4 times a month 2. How many drinks containing alcohol do you have on a typical day when you are drinking?: 1 or 2 3. How often do you have six or more drinks on one occasion?: Never Total Score: 2 SATNAM-7 AMB Questionnaire SATNMA-7 Date SATNAM - 7 assessed: 07/01/25 Feeling nervous, anxious, or on edge: 0 = Not at all Not being able to stop or control worryin = Not at all Worrying too much about different things: 0 = Not at all Trouble relaxin = Not at all Being so restless that it is hard to sit still: 0 = Not at all Becoming easily annoyed or irritable: 0 = Not at all Feeling afraid as if something awful might happen: 0 = Not at all Total SATNAM-7 score (0-4 normal; 5-9 mild; 10-14 moderate; 15-21 severe): 0 Source: Developed by Drs. Kelby Cervantes, Saritha Crawford, Royal Barahona and colleagues, with an educational usman from [employer]. SATNAM-7 Assessment Billing SATNAM-7 Assessment Tool: SATNAM-7 Assessment 87041 Review of Systems Const All systems reviewed & are unremarkable except as noted in HPI and below Eyes Reports no additional complaints ENT Reports no additional complaints Card Reports no additional complaints Resp Reports no additional complaints Reports no additional complaints Physical exam (Primary Care) Vital Signs: Last Vital Signs Temp 98.0 F 07/01/25 08:24 Pulse 64 07/01/25 08:24 Resp 18 07/01/25 08:24 BP 120/78 07/01/25 08:24 Pulse Ox 97 07/01/25 08:24 Oxygen Delivery Method Room Air 07/01/25 08:24 BMI result Body Mass Index 34.8 Tobacco/Smoking Status: Tobacco use Status Tobacco use date assessed 07/01/25 07/01/25 08:31 Patient Tobacco Use Status Never used Tobacco 07/01/25 08:31 e-Cigarette/Vaping Use Never Used 07/01/25 08:31 PHQ-9: PHQ-9 Score PHQ-9: Total score 0 07/01/25 08:31 Depression Screening Interpretation: Negative Thrive Assessment: Date of Thrive Assessment Date Thrive assessed 07/01/25 07/01/25 08:31 Currently or been in a relationship where the following occur: No concerns reported Const General: no acute distress HENMT Head: Yes normal to inspection Ears: TM's normal bilaterally Face and sinus: Yes normal facial exam Mouth: Normal oral and palatal mucosa present Eyes General: appearance normal, both eyes and all related structures Neck Neck: Yes no lymphadenopathy and Yes supple Resp Effort & Inspection: normal respiratory effort Auscultation: clear to auscultation bilaterally Cardio Rhythm: regular rhythm Heart sounds: S1 normal heart sound present and S2 normal heart sound present GI Inspection: Yes normal to inspection Palpation (GI): Soft to palpation Percussion: Yes normal to percussion Auscultation: normal bowel sounds Coding Level of Care Code Est Pt Prev Care 40-64y(67970) Diagnoses Annual physical exam Z00.00 Mild asthma with acute exacerbation, unspecified whether persistent J45.901 Asthma severity: mild Asthma persistence: unspecified Asthma complication type: with acute exacerbation Additional Codes SATNAM-7 Assessment Billing - SATNAM-7 Assessment Tool: SATNAM-7 Assessment 67914 ([id number]) PHQ-9 - 00050 - PHQ-9 Billing: Yes ([id number]) Assessment & Plan Assessment & Plan (1) Annual physical exam: Code(s): Z00.00 - Encounter for general adult medical examination without abnormal findings Category: Medical Plan: Well-balanced diet regular physical activity weight loss discussed with the patient. She will schedule mammogram at [facility] and is up-to-date with Pap smear and colonoscopy (2) Asthma: Comment: Controlled on Advair Code(s): J45.909 - Unspecified asthma, uncomplicated Category: Medical Qualifiers: Asthma severity: mild Asthma persistence: unspecified Asthma complication type: with acute exacerbation Qualified Code(s): J45.901 - Unspecified asthma with (acute) exacerbation Plan: Controlled on Advair. Patient uses albuterol as needed only, follow-up in 6 months Orders: Orders MM screening mammo BI Today Z12.31 - Encounter for screening mammogram for malignant neoplasm of breast Medications: Refilled omeprazole 40 mg PO DAILY 90 caps 1RF fluticasone propion-salmeterol 250-50 mcg/dose (Advair Diskus) 1 inh inhalation BID 60 ea 2RF
== END 2025-07-01 09:14 | disposition home or self-care (01) ==
LOC: HO.HMCC 08:23
PROVIDERS: PCP Internal Medicine; Visit Provider Internal Medicine
DX: Z00.00 Encounter for general adult medical examination without abnormal findings (principal); J45.901 Unspecified asthma with (acute) exacerbation; Z23 Encounter for immunization

== ENCOUNTER → 2025-07-01 08:22 | Outpatient (BNVA) | payer OTHER, SELFPAY | PROVIDERS: PCP Internal Medicine; Visit Provider Internal Medicine | DX: Z00.00 Encounter for general adult medical examination without abnormal findings (principal); J45.901 Unspecified asthma with (acute) exacerbation; Z23 Encounter for immunization | CPT/HCPCS: 90471; 90656; 96127 ==